=== PATIENT | male | born 1975 | race Asian ===

== ENCOUNTER 2019-09-16 13:15 | Inpatient (IN) | payer MEDICAID, OTHER ==
[~2019-09-16] VITALS: Ht 182.9 cm; Wt 121.1 kg
[2019-09-16] MEDS ORDERED: ETOMIDATE (2MG/ML) 20ML VIAL IV ONE ×2 (13:30→14:45)
[2019-09-16] MEDS ORDERED: SODIUM CHLORIDE 0.9% 1,000 ML IV ONE (13:30)
[2019-09-16] MEDS ORDERED: MIDAZOLAM DRIP 50 mg/50mL 50 ML IV ONE (13:31)
[2019-09-16] MEDS ORDERED: SUCCINYLCHOLINE CHLORIDE 20 MG/ML 10ML VIAL IV ONE ×2 (13:31→14:45)
[2019-09-16] MEDS ORDERED: PROPOFOL 100 ML IV ONE (13:38)
[2019-09-16] MEDS: PROPOFOL 100 ML IV SCH (13:50)
[2019-09-16 14:00] VITALS: BP 205/109
--- NOTE | 2019-09-16 14:00 | NUR ---
PT INTUBATED BY DR. WOOD WITH ETT 8.0 AT 24CM, SECURED WITH HOLISTER. POSITIVE COLOR CHANGE ON ETCO2 DETECTOR, BILATERAL CHEST RISE. PLACED ON VENTILATOR V1 PLUGGED INTO RED OUTLET, ON SETTINGS: AC, RR 18, VT 550, PEEP +5, FIO2 100%. SUCTIONED FOR MODERATE THIN BLOOD-TINGED SECRETIONS. SPUTUM SAMPLE OBTAINED AND SENT TO LAB. ALARMS SET AND AUDIBLE. RN AND MD AT BEDSIDE. ABG TO FOLLOW IN ONE HOUR. WILL CONTINUE TO MONITOR.
[2019-09-16 14:24] LABS: Basophils # (auto) 0 10 ^3/uL (0-0.2); Basophils % (auto) 0.1 % (0.0-2.0); Eosinophils # (auto) 0 10 ^3/uL (0-0.8); Hematocrit 40.7 % (41.0-53.0); Lymphocytes # (auto) 0.4 10 ^3/uL (0.4-5.4); Lymphocytes % (auto) 3.4 % (10.0-50.0); Mean Corpuscular Hemoglobin 30.5 pg (28.0-32.0); Mean Corpuscular Hgb Conc. 31.9 g/dL (32.0-36.0); Mean Corpuscular Volume 95.9 fL (80.0-100.0); Monocytes # (auto) 0.4 10 ^3/uL (0-1.3); Monocytes % (auto) 2.9 % (0.0-12.0); Neutrophils # (auto) 11.5 10 ^3/uL (1.6-8.6); Neutrophils % (auto) 93.6 % (37.0-80.0); Platelet Count (auto) 197 10^3/uL (140-450); Red Blood Cells 4.24 10^6/uL (4.5-5.90); Red Cell Distribution Width 14.6 % (11.8-14.3); White Blood Cell 12.2 10^3/uL (4.4-10.8)
[2019-09-16 14:30] LABS: Urine Amorphous Crystal MOD /hpf (None Seen); Urine Bacteria NONE SEEN /hpf (None Seen); Urine Blood 1+ /uL (Negative); Urine Hyaline Cast MOD /lpf (0 - 2); Urine Specific Gravity 1.021 (1.001-1.035); Urine WBC 2 /hpf (0 - 3)
[2019-09-16 14:39] LABS: Albumin 1.8 g/dL (3.4-5.0); Calcium 7.6 mg/dL (8.5-10.1)
[2019-09-16] MEDS: MIDAZOLAM DRIP 50 mg/50mL 50 ML IV SCH (14:40)
[2019-09-16 14:45] LABS: BUN/Creatinine Ratio 19.7; Bilirubin, Total 0.5 mg/dL (0.2-1.0); Total Protein 6.4 g/dL (6.4-8.2)
[2019-09-16 14:47] LABS: Potassium 5.9 mmol/L (3.5-5.1)
[2019-09-16] MEDS ORDERED: DEXTROSE 10% 1,000 ML IV ONE (15:03)
[2019-09-16] MEDS ORDERED: FUROSEMIDE 20 MG/2 ML VIAL ONE (15:08)
[2019-09-16] MEDS: DEXTROSE 10% 1,000 ML IV SCH (15:13)
[2019-09-16] MEDS ORDERED: ALBUTEROL SULF 2.5 MG/0.5ML(0.5%) NEB SOLN NEB ONE (15:15)
[2019-09-16] MEDS ORDERED: CALCIUM GLUC 4.65meq/50ml D5AE 50 ML IV ONE (15:15)
[2019-09-16] MEDS ORDERED: SODIUM BICARBONATE 8.4% INJ 50ML SYRINGE IV ONE (15:15)
[2019-09-16] MEDS ORDERED: SODIUM ZIRCONIUM CYCL 10 GM PAK PO ONE (15:15)
[2019-09-16] MEDS ORDERED: FUROSEMIDE 20 MG/2 ML VIAL IV ONE ×2 (15:15)
[2019-09-16] MEDS ORDERED: AZITHROMYCIN 500MG/ 250ML 250 ML IV ONE (15:30)
[2019-09-16] MEDS ORDERED: cefTRIAXone 1GM/50ML D5W 50 ML IV ONE (15:30)
[2019-09-16 15:57] VITALS: BP 121/61
[2019-09-16 16:00] VITALS: BP 121/61
[2019-09-16] MEDS ORDERED: DEXTROSE (50%) 50ML SYRG IV PRN (16:00)
[2019-09-16] MEDS ORDERED: MORPHINE SULF INJ 2 MG/ML SYRINGE 1ML IV PRN ×2 (16:00)
[2019-09-16] MEDS ORDERED: LACTULOSE 20Gm/30ML SOLN PO PRN (16:00)
[2019-09-16] MEDS ORDERED: DexAMETHasone SOD PHOS 10MG/1ML VIAL INJ IV ONE (16:00)
[2019-09-16] MEDS ORDERED: ACETAMINOPHEN 500 MG TAB PO PRN (16:00)
[2019-09-16] MEDS ORDERED: NITROGLYCERIN 0.4 MG SL TAB SL PRN (16:00)
[2019-09-16] MEDS ORDERED: ALBUTEROL SULF 2.5 MG/0.5ML(0.5%) NEB SOLN NEB PRN (16:00)
[2019-09-16] MEDS ORDERED: PROMETHAZINE HCL 25 MG/ML 1ML IV PRN (16:00)
[2019-09-16] MEDS: ACCU-CHEK COMFORT CURVE STRIP VI SCH ×2 (16:20→23:42)
[2019-09-16] MEDS: PHENYLEPHRINE IV 250 ML IV SCH (16:45)
[2019-09-16] MEDS ORDERED: PHENYLEPHRINE IV 250 ML IV ONE (16:56)
[2019-09-16] MEDS: FUROSEMIDE 40 MG/4 ML VIAL IV SCH (18:19)
[2019-09-16 19:30] VITALS: BP 130/74
[2019-09-16] MEDS: IPRATROPIUM BROM 0.5 MG/2.5ML INH SOL NEB SCH (19:30)
[2019-09-16] MEDS: ALBUTEROL SULF 2.5 MG/0.5ML(0.5%) NEB SOLN NEB SCH (19:30)
[2019-09-16] MEDS: BUDESONIDE (INHALATION) 0.5 MG/2 ML NEB NEB SCH (19:30)
[2019-09-16] MEDS ORDERED: METO2.5T11 PO (19:54)
[2019-09-16] MEDS ORDERED: POTA1TAB61 PO (19:54)
[2019-09-16] MEDS ORDERED: GLIP5TAB12 PO (19:54)
[2019-09-16] MEDS ORDERED: FURO40TA4 PO (19:54)
[2019-09-16] MEDS ORDERED: SACU1TAB7 PO (19:54)
[2019-09-16] MEDS ORDERED: CARV12.544 PO (19:54)
[2019-09-16] MEDS ORDERED: ASCO500T11 PO (19:55)
[2019-09-16] MEDS ORDERED: HAWTCAP PO (19:55)
[2019-09-16] MEDS ORDERED: CRAN600T OR (19:55)
[2019-09-16] MEDS ORDERED: MULT-1018 PO (19:55)
[2019-09-16] MEDS ORDERED: COEN150C4 PO (19:56)
[2019-09-16] MEDS ORDERED: TAUR500C2 PO (19:57)
[2019-09-16 21:55] VITALS: BP 139/76
[2019-09-16] MEDS ORDERED: BUDESONIDE (INHALATION) 180 MCG IH IN SCH (22:00)
[2019-09-16] MEDS ORDERED: ALBUTEROL SULF HFA 90MCG INH 200DOSE IN SCH (22:00)
[2019-09-16] MEDS: SODIUM CHLOR 0.9% PF (SALINE LOCK) 10ML VIAL/SYR IV SCH (23:42)
[2019-09-16] MEDS: CARVEDILOL 3.125 MG TAB PO SCH (23:43)
[2019-09-17] VITALS (11 sets, daily range): BP systolic 113–146; BP diastolic 56–78
[2019-09-17] MEDS: ACCU-CHEK COMFORT CURVE STRIP VI SCH ×5 (00:06→16:00)
[2019-09-17] MEDS: IPRATROPIUM BROM 0.5 MG/2.5ML INH SOL NEB SCH ×4 (00:30→18:25)
[2019-09-17] MEDS: ALBUTEROL SULF 2.5 MG/0.5ML(0.5%) NEB SOLN NEB SCH ×4 (00:30→18:25)
[2019-09-17] MEDS: PHENYLEPHRINE IV 250 ML IV SCH ×3 (01:24→19:25)
[2019-09-17 06:04] LABS: Albumin 1.3 g/dL (3.4-5.0); Calcium 7.2 mg/dL (8.5-10.1); Potassium 4.9 mmol/L (3.5-5.1)
[2019-09-17 06:09] LABS: BUN/Creatinine Ratio 21.8; Bilirubin, Total 0.4 mg/dL (0.2-1.0); Total Protein 3.8 g/dL (6.4-8.2)
[2019-09-17] MEDS: SODIUM CHLOR 0.9% PF (SALINE LOCK) 10ML VIAL/SYR IV SCH ×3 (06:34→22:52)
[2019-09-17] MEDS: FUROSEMIDE 40 MG/4 ML VIAL IV SCH ×2 (06:34→18:37)
[2019-09-17 07:45] LABS: Basophils # (auto) 0 10 ^3/uL (0-0.2); Basophils % (auto) 0.2 % (0.0-2.0); Eosinophils # (auto) 0 10 ^3/uL (0-0.8); Hematocrit 28.1 % (41.0-53.0); Hemoglobin 9.3 g/dL (13.5-17.5); Lymphocytes # (auto) 0.6 10 ^3/uL (0.4-5.4); Lymphocytes % (auto) 8.1 % (10.0-50.0); Mean Corpuscular Hemoglobin 31.4 pg (28.0-32.0); Mean Corpuscular Hgb Conc. 33.3 g/dL (32.0-36.0); Mean Corpuscular Volume 94.3 fL (80.0-100.0); Monocytes # (auto) 0.3 10 ^3/uL (0-1.3); Monocytes % (auto) 4.2 % (0.0-12.0); Neutrophils # (auto) 6.9 10 ^3/uL (1.6-8.6); Neutrophils % (auto) 87.5 % (37.0-80.0); Platelet Count (auto) 109 10^3/uL (140-450); Red Blood Cells 2.98 10^6/uL (4.5-5.90); Red Cell Distribution Width 14.4 % (11.8-14.3); White Blood Cell 7.9 10^3/uL (4.4-10.8)
[2019-09-17] MEDS: BUDESONIDE (INHALATION) 0.5 MG/2 ML NEB NEB SCH ×2 (08:04→18:25)
[2019-09-17] MEDS ORDERED: DexAMETHasone SOD PHOS 10MG/1ML VIAL INJ IV SCH (10:00)
[2019-09-17] MEDS ORDERED: ENOXAPARIN SOD 30 MG/0.3 ML SYRINGE SC SCH (10:00)
[2019-09-17] MEDS ORDERED: NITROGLYCERIN 0.2MG/HR TOPICAL PATCH TD SCH (10:00)
[2019-09-17] MEDS ORDERED: ASPirin 81 mg TAB PO SCH (10:00)
[2019-09-17] MEDS ORDERED: ASCORBIC ACID 1,000 MG TAB PO SCH (10:00)
[2019-09-17] MEDS ORDERED: ZINC SULFATE 220mg CAP or TAB PO SCH (10:00)
[2019-09-17] MEDS ORDERED: CHOLECALCIFEROL (VITD3) 2,000 UNIT CAP PO SCH (10:00)
[2019-09-17] MEDS: cefTRIAXone 1GM/50ML D5W 50 ML IV SCH (10:14)
[2019-09-17] MEDS: CARVEDILOL 3.125 MG TAB PO SCH ×2 (12:00→22:00)
[2019-09-17] MEDS: DEXTROSE 10% 1,000 ML IV SCH (12:01)
[2019-09-17] MEDS: AZITHROMYCIN 500MG/ 250ML 250 ML IV SCH (12:17)
--- NOTE | 2019-09-17 15:00 | NUR ---
RT Transport Note: Patient transported to CT with RN SHEILA KEYS. Patient transported to and from procedure on ventilator with previous ordered settings. Patient on campus monitor with alarms set and audible, ambu-bag/mask connected to 02 tank. Patient returned to room with no adverse reaction noted. Transport completed without incident.
[2019-09-17] MEDS: MIDAZOLAM DRIP 50 mg/50mL 50 ML IV SCH (15:37)
[2019-09-17] MEDS: PROPOFOL 100 ML IV SCH (16:03)
[2019-09-17] MEDS ORDERED: DEXTROSE (50%) 50ML SYRG IV PRN ×2 (20:00→21:30)
[2019-09-17] MEDS ORDERED: ACCU-CHEK COMFORT CURVE STRIP VI SCH (20:00)
[2019-09-18] VITALS (11 sets, daily range): BP systolic 105–178; BP diastolic 60–87
[2019-09-18] MEDS: ACCU-CHEK COMFORT CURVE STRIP VI SCH ×4 (00:06→17:14)
[2019-09-18] MEDS: IPRATROPIUM BROM 0.5 MG/2.5ML INH SOL NEB SCH ×4 (00:09→18:13)
[2019-09-18] MEDS: ALBUTEROL SULF 2.5 MG/0.5ML(0.5%) NEB SOLN NEB SCH ×4 (00:09→18:12)
[2019-09-18] MEDS: InsuLIN REG 1unit/0.01ml Soln (100units/ml) SC SCH ×4 (00:12→17:14)
[2019-09-18] MEDS: PHENYLEPHRINE IV 250 ML IV SCH (02:24)
[2019-09-18] MEDS: SODIUM CHLOR 0.9% PF (SALINE LOCK) 10ML VIAL/SYR IV SCH ×3 (06:01→22:05)
[2019-09-18] MEDS: FUROSEMIDE 40 MG/4 ML VIAL IV SCH ×2 (06:01→17:13)
[2019-09-18 07:50] LABS: Basophils # (auto) 0 10 ^3/uL (0-0.2); Basophils % (auto) 0.1 % (0.0-2.0); Eosinophils # (auto) 0 10 ^3/uL (0-0.8); Hematocrit 27.3 % (41.0-53.0); Lymphocytes # (auto) 0.6 10 ^3/uL (0.4-5.4); Lymphocytes % (auto) 7.4 % (10.0-50.0); Mean Corpuscular Hemoglobin 31.3 pg (28.0-32.0); Monocytes # (auto) 0.4 10 ^3/uL (0-1.3); Monocytes % (auto) 5.4 % (0.0-12.0); Neutrophils # (auto) 6.6 10 ^3/uL (1.6-8.6); Neutrophils % (auto) 87.1 % (37.0-80.0); Platelet Count (auto) 118 10^3/uL (140-450); Red Blood Cells 2.87 10^6/uL (4.5-5.90); Red Cell Distribution Width 14.8 % (11.8-14.3); White Blood Cell 7.6 10^3/uL (4.4-10.8)
[2019-09-18 08:06] LABS: BUN/Creatinine Ratio 20.7; Calcium 7.1 mg/dL (8.5-10.1); Potassium 4.7 mmol/L (3.5-5.1)
[2019-09-18] MEDS: CARVEDILOL 3.125 MG TAB PO SCH ×2 (09:48→22:06)
[2019-09-18] MEDS: PROPOFOL 100 ML IV SCH ×5 (09:48→23:00)
[2019-09-18] MEDS: cefTRIAXone 1GM/50ML D5W 50 ML IV SCH ×2 (09:48→22:00)
[2019-09-18] MEDS: BUDESONIDE (INHALATION) 0.5 MG/2 ML NEB NEB SCH ×2 (10:45→18:13)
[2019-09-18] MEDS: AZITHROMYCIN 500MG/ 250ML 250 ML IV SCH (10:47)
--- NOTE | 2019-09-18 11:52 | NUR ---
WOUND CARE NOTE: Wound care in to see patient per wound care request regarding sacral pressure injury that are noted present on admission. Patient is 44 years old male with admitting diagnosis of ALOC, Acute Resp Failure, HF. Patient is resting in hospital bed in ED #18. Patient is intubated, sedated and mechanically ventilated. Patient appears to be in no pain using Ford Womack Faces Pain Scale. His Nicholas score is 12. Skin assessment done with the assistance of patient's nurse, MARK Cano. Noted patient's Rt, Lt and medial sacrum has dark maroon blistered pressure injury measuring 6x5 cm. Sacral pressure injury is consistent with DTI (Deep Tissue Injury). On reports, patient found altered by his family. Patient is receiving BID/PRN cleaning and application of Z Guard cream to sacral, buttocks with Opti foam sacral dressing to sacrum. Patient's BLE also noted with scabs and dry hyperkeratotic skin. Photograph of patient's skin issue are taken for reference. Patient noted with generalized edema and his scrotum also noted swelling. Repositioned patient for comfort facing his Lt. side, redistributed pressure points with pillows. Patient tolerated well. RECOMMENDATION: Nursing to continue with BID/PRN cleaning and application of Z Guard cream to sacral, buttocks per MD order, Dietary consult, frequent turning and repositioning schedule as condition permits,redistribute pressure points with pillows,frequent frances care/check, keep clean and dry, elevate heels on pillows, air mattress (ordered), continue monitoring by wound care while patient is hospitalized. Addendum: 09/18/19 at 1520 by Stefanie Briceño RN Amended: Links added.
[2019-09-18] MEDS ORDERED: SODIUM BICARBONATE 50ML VIAL 75 ML in SOD CHL 0.45% 1,000 ML IV SCH (14:15)
[2019-09-18] MEDS ORDERED: PANTOPRAZOLE 40 MG/10 ML VIAL INJ IV ONE (14:45)
[2019-09-18] MEDS ORDERED: SODIUM BICARBONATE 8.4 % INJ 50ML VIAL IV ONE (14:45)
--- NOTE | 2019-09-18 15:03 | NUR ---
AIR MATTRESS: Air bed ordered at [facility]. VERNA 09/18/19 @ 2100. Reference #[id number]. Please call [facility] at if needed to follow up. Addendum: 09/18/19 at 1504 by Stefanie Briceño RN Amended: Links added.
[2019-09-18] MEDS ORDERED: hydrALAZINE HCL 20 MG/ML VL ONE (19:10)
[2019-09-18 19:46] LABS: Amphetamine Screen, Urine NEGATIVE (NEGATIVE); Barbiturate Scree,Urine NEGATIVE (NEGATIVE); Cannabinoid Screen, Urine NEGATIVE (NEGATIVE); Sodium Urine 81 mmol/L (40-220)
[2019-09-18 19:49] LABS: Benzodiazephine Screen, Urine NEGATIVE (NEGATIVE); Cocaine Screen, Urine NEGATIVE (NEGATIVE); Creatinine, Urine 16 mg/dL (30.0-125.0); Opiate Scree,Urine NEGATIVE (NEGATIVE); Phencyclidine Screen, Urine NEGATIVE (NEGATIVE)
[2019-09-18 20:59] LABS: INR 0.98 (0.9-1.15)
[2019-09-18] MEDS: hydrALAZINE HCL 20 MG/ML VL IV PRN (21:20)
[2019-09-18] MEDS: PANTOPRAZOLE 40 MG/10 ML VIAL INJ IV SCH (22:00)
[2019-09-19] VITALS (13 sets, daily range): BP systolic 127–169; BP diastolic 58–86
[2019-09-19] MEDS ORDERED: ENALAPRILAT 1.25 MG/ML-1ML VIAL IV ONE
[2019-09-19] MEDS: ALBUTEROL SULF 2.5 MG/0.5ML(0.5%) NEB SOLN NEB SCH ×4 (00:20→18:31)
[2019-09-19] MEDS: IPRATROPIUM BROM 0.5 MG/2.5ML INH SOL NEB SCH ×4 (00:20→18:31)
[2019-09-19] MEDS: InsuLIN REG 1unit/0.01ml Soln (100units/ml) SC SCH ×4 (00:27→17:54)
[2019-09-19] MEDS: ACCU-CHEK COMFORT CURVE STRIP VI SCH ×4 (00:27→17:54)
[2019-09-19] MEDS: PROPOFOL 100 ML IV SCH (01:30)
[2019-09-19] MEDS: SODIUM CHLOR 0.9% PF (SALINE LOCK) 10ML VIAL/SYR IV SCH ×3 (05:40→23:09)
[2019-09-19] MEDS: FUROSEMIDE 40 MG/4 ML VIAL IV SCH (05:40)
[2019-09-19] MEDS: BUDESONIDE (INHALATION) 0.5 MG/2 ML NEB NEB SCH ×2 (06:15→18:31)
[2019-09-19 08:49] LABS: Basophils # (auto) 0 10 ^3/uL (0-0.2); Basophils % (auto) 0.2 % (0.0-2.0); Eosinophils # (auto) 0 10 ^3/uL (0-0.8); Eosinophils % (auto) 0.7 % (0.0-7.0); Hematocrit 27.1 % (41.0-53.0); Hemoglobin 9.2 g/dL (13.5-17.5); Lymphocytes % (auto) 16.9 % (10.0-50.0); Mean Corpuscular Hemoglobin 31.8 pg (28.0-32.0); Mean Corpuscular Volume 93.6 fL (80.0-100.0); Monocytes # (auto) 0.3 10 ^3/uL (0-1.3); Monocytes % (auto) 4.5 % (0.0-12.0); Neutrophils # (auto) 4.8 10 ^3/uL (1.6-8.6); Neutrophils % (auto) 77.7 % (37.0-80.0); Nucleated Red Blood Cells % 0.1 %; Platelet Count (auto) 127 10^3/uL (140-450); Red Cell Distribution Width 14.6 % (11.8-14.3); White Blood Cell 6.1 10^3/uL (4.4-10.8)
[2019-09-19 08:57] LABS: BUN/Creatinine Ratio 21.9; Potassium 4.1 mmol/L (3.5-5.1)
[2019-09-19] MEDS: PANTOPRAZOLE 40 MG/10 ML VIAL INJ IV SCH ×2 (09:38→23:09)
[2019-09-19] MEDS: cefTRIAXone 1GM/50ML D5W 50 ML IV SCH ×2 (09:38→23:09)
[2019-09-19] MEDS: AZITHROMYCIN 500MG/ 250ML 250 ML IV SCH (09:38)
[2019-09-19] MEDS: CARVEDILOL 3.125 MG TAB PO SCH ×2 (09:49→22:00)
[2019-09-19] MEDS: hydrALAZINE HCL 20 MG/ML VL IV PRN ×2 (12:32→18:26)
--- NOTE | 2019-09-19 12:55 | NUR ---
Consult Consider TF of Osmolite 1.2 with a goal rate of 50ml/hr per MD approval, change to Glucerna 1.2 if pt is confirmed DM Consider adding Nephrovite and Vitamin C 500mg BID for wound healing Est energy needs 6810-9314 kcal (20-25 kcal/kg IBW 81kg) Est protein needs 81-101g (0.6-0.75g/kg BW 135.6kg, r/t elevated RFT possible CKD no HD) Will reassess prn. Addendum: 09/19/19 at [address] Amended: Links added.
[2019-09-19] MEDS: Jevity 1.2 Cal/Fiber 1 Liter GT SCH (13:55)
[2019-09-19] MEDS ORDERED: AMIODARONE 450mg/250ml AE 250 ML IV SCH ×2 (15:34→21:34)
[2019-09-19] MEDS: FUROSEMIDE 100 MG/10ML VIAL IV SCH (18:17)
[2019-09-20] VITALS (46 sets, daily range): BP systolic 111–209; BP diastolic 57–92
[2019-09-20] MEDS: ACCU-CHEK COMFORT CURVE STRIP VI SCH ×4 (00:24→18:01)
[2019-09-20] MEDS: IPRATROPIUM BROM 0.5 MG/2.5ML INH SOL NEB SCH ×4 (00:26→19:03)
[2019-09-20] MEDS: ALBUTEROL SULF 2.5 MG/0.5ML(0.5%) NEB SOLN NEB SCH ×4 (00:26→19:03)
[2019-09-20] MEDS: hydrALAZINE HCL 20 MG/ML VL IV PRN ×4 (00:43→21:30)
[2019-09-20] MEDS ORDERED: cloNIDine HCL 0.1 MG TAB PO ONE (03:15)
[2019-09-20] MEDS: BUDESONIDE (INHALATION) 0.5 MG/2 ML NEB NEB SCH (06:36)
[2019-09-20] MEDS: InsuLIN REG 1unit/0.01ml Soln (100units/ml) SC SCH ×4 (06:40→18:00)
[2019-09-20] MEDS: SODIUM CHLOR 0.9% PF (SALINE LOCK) 10ML VIAL/SYR IV SCH ×3 (06:51→22:00)
[2019-09-20] MEDS: FUROSEMIDE 100 MG/10ML VIAL IV SCH ×2 (07:07→20:18)
[2019-09-20] MEDS: PANTOPRAZOLE 40 MG/10 ML VIAL INJ IV SCH ×2 (09:57→22:00)
[2019-09-20] MEDS: AZITHROMYCIN 500MG/ 250ML 250 ML IV SCH (09:57)
[2019-09-20] MEDS: cefTRIAXone 1GM/50ML D5W 50 ML IV SCH ×2 (09:57→22:00)
[2019-09-20] MEDS: CARVEDILOL 3.125 MG TAB PO SCH ×2 (09:57→21:49)
[2019-09-20 10:12] LABS: Basophils # (auto) 0.1 10 ^3/uL (0-0.2); Basophils % (auto) 1.2 % (0.0-2.0); Eosinophils # (auto) 0.1 10 ^3/uL (0-0.8); Eosinophils % (auto) 3.2 % (0.0-7.0); Hematocrit 33.9 % (41.0-53.0); Hemoglobin 11.2 g/dL (13.5-17.5); Lymphocytes # (auto) 0.4 10 ^3/uL (0.4-5.4); Lymphocytes % (auto) 9.2 % (10.0-50.0); Mean Corpuscular Hemoglobin 31.2 pg (28.0-32.0); Mean Corpuscular Hgb Conc. 32.9 g/dL (32.0-36.0); Mean Corpuscular Volume 94.7 fL (80.0-100.0); Monocytes # (auto) 0.4 10 ^3/uL (0-1.3); Monocytes % (auto) 7.9 % (0.0-12.0); Neutrophils # (auto) 3.5 10 ^3/uL (1.6-8.6); Neutrophils % (auto) 78.5 % (37.0-80.0); Platelet Count (auto) 124 10^3/uL (140-450); Red Blood Cells 3.58 10^6/uL (4.5-5.90); Red Cell Distribution Width 14.5 % (11.8-14.3); White Blood Cell 4.5 10^3/uL (4.4-10.8)
[2019-09-20 10:30] LABS: Calcium 7.3 mg/dL (8.5-10.1)
--- NOTE | 2019-09-20 11:00 | NUR ---
RECEIVED FROM ED VIA BED. RE-ASSESSED. REPOSITIONED FOR COMFORT. PT REMAINS ON VENTILATOR DX WITH ALOC. CURRENTLY SEDATED WITH PROPOFOL AT 10 MICG/KG/MIN. PT LOOKS COMFORTABLE. REPOSITIONED FOR COMFORT. ORAL CARE PROVIDED. PT HAS THICK CERDA ORAL AND ETT SECRETIONS.PT LAYING ON ICU AIR LOSS MATTRESS, I CHECK WITH WOUND CARE CHRIS AND SHE STATES THIS MATTRESS IS APPROPRIATE FOR PT'S WOUNDS. THERE IS NO NEED FOR A SPECIALTY BED WHILE PT IS ON THIS AIRLOSS MATTRESS. MONITOR ALARMS VERIFIED . TLC ON RT IJ ALL PORTS PATENT, FC DRAINING YELLOW PALE URINE AT ADEQUATE AMOUNTS PER HR, PT BEING MONITOR BY CLERICAL ADJUDICATOR FOR ELEVATED BUN+CR WITH FLUID OVERLOAD.
[2019-09-20] MEDS: PROPOFOL 100 ML IV SCH ×2 (14:19→21:49)
[2019-09-20] MEDS: LINEZOLID 600MG/300ML 300 ML IV SCH (16:23)
--- NOTE | 2019-09-20 16:40 | NUR ---
DR. LAUREANO ROUNDING ON PT. UPDATED ON PT'S CONDITION. NEW ORDERS RECEIVED. WANTS TO PROCEED DIURESING PT.
--- NOTE | 2019-09-20 19:30 | NUR ---
REPORT GIVEN TO ONCOMING MARK RAMÍREZ. PT REMAINS HYPERTENSIVE,. MEDICATED WITH HYDRALAZINE TWICE, PT ALSO JUST RECEIVED LASIX.
--- NOTE | 2019-09-20 20:00 | NUR ---
Opening Shift Note: Patient is intubated/sedated. ET size 8.0/26 @ lip. Settings: AC rate 14, vT 600, FiO2 40%, and PEEP 5. Neuro: pupils 3 mm/brisk/reactive; flaccid extremities; hypoactive cough/gag. Cardio: NSR with inverted t wave 70s-80s; elevated BPs 170s-180s; radial pulses palpable with +3 pitting edema to both arms; DP pulses weak but palpable with +3 pitting to BLE. Resp: lung sounds clear/dim in bases; small output: rust colored/thick in mouth. GI: R NGT running Jevity @ 30 ml/hr (goal) with 5 ml of residual. Hypoactive BS; Flexiseal in place for liquid brown stool. Mcgill inserted on 09/16/19 for strict I/O; purluent discharge from insertion site; meatus care performed. Skin: BUE open blistering: telfa nonadherent gauze wrap CDI; BLE cellulitis scabbing/scaly/discolored TESS; Sacral wound DTI with opening: optifoam CDI. IV: right IJ TLC running propofol @ 12.5 mcg/hr inserted on 09/16/19. Will continue to round/reposition/perform oral care prn.
[2019-09-20] MEDS: ALBUMIN 25% 100 ML IV SCH (20:17)
[2019-09-21] VITALS (81 sets, daily range): BP systolic 124–248; BP diastolic 62–102
[2019-09-21] MEDS: ALBUMIN 25% 100 ML IV SCH ×2 (00:37→10:59)
[2019-09-21] MEDS: LINEZOLID 600MG/300ML 300 ML IV SCH ×2 (00:38→13:09)
[2019-09-21] MEDS: IPRATROPIUM BROM 0.5 MG/2.5ML INH SOL NEB SCH ×4 (01:26→18:17)
[2019-09-21] MEDS: BUDESONIDE (INHALATION) 0.5 MG/2 ML NEB NEB SCH ×3 (01:26→18:17)
[2019-09-21] MEDS: ALBUTEROL SULF 2.5 MG/0.5ML(0.5%) NEB SOLN NEB SCH ×4 (01:26→18:17)
[2019-09-21] MEDS: PROPOFOL 100 ML IV SCH ×3 (03:36→13:28)
[2019-09-21 04:22] LABS: Basophils # (auto) 0 10 ^3/uL (0-0.2); Basophils % (auto) 0.2 % (0.0-2.0); Eosinophils # (auto) 0.2 10 ^3/uL (0-0.8); Eosinophils % (auto) 4.2 % (0.0-7.0); Hematocrit 27.3 % (41.0-53.0); Hemoglobin 9.2 g/dL (13.5-17.5); Lymphocytes # (auto) 0.5 10 ^3/uL (0.4-5.4); Lymphocytes % (auto) 10.3 % (10.0-50.0); Mean Corpuscular Hemoglobin 31.6 pg (28.0-32.0); Mean Corpuscular Hgb Conc. 33.5 g/dL (32.0-36.0); Mean Corpuscular Volume 94.2 fL (80.0-100.0); Monocytes # (auto) 0.4 10 ^3/uL (0-1.3); Monocytes % (auto) 7.9 % (0.0-12.0); Neutrophils # (auto) 3.5 10 ^3/uL (1.6-8.6); Neutrophils % (auto) 77.4 % (37.0-80.0); Platelet Count (auto) 100 10^3/uL (140-450); Red Cell Distribution Width 14.4 % (11.8-14.3); White Blood Cell 4.6 10^3/uL (4.4-10.8)
[2019-09-21 04:38] LABS: Albumin 1.7 g/dL (3.4-5.0); Potassium 3.9 mmol/L (3.5-5.1)
[2019-09-21 04:46] LABS: BUN/Creatinine Ratio 22.3; Bilirubin, Total 0.4 mg/dL (0.2-1.0); Total Protein 4.8 g/dL (6.4-8.2)
--- NOTE | 2019-09-21 05:00 | NUR ---
Patient bathe/linen change Patient given complete CHG bath. Skin integrity assessed for any changes; optifoam on sacrum changed. Linens and gown changed. Patient repositioned for comfort.
[2019-09-21] MEDS: FUROSEMIDE 100 MG/10ML VIAL IV SCH ×3 (06:00→18:00)
[2019-09-21] MEDS: ACCU-CHEK COMFORT CURVE STRIP VI SCH ×4 (06:00→18:33)
[2019-09-21] MEDS: InsuLIN REG 1unit/0.01ml Soln (100units/ml) SC SCH ×4 (06:00→18:45)
[2019-09-21] MEDS: SODIUM CHLOR 0.9% PF (SALINE LOCK) 10ML VIAL/SYR IV SCH ×3 (06:00→22:13)
[2019-09-21] MEDS: CARVEDILOL 3.125 MG TAB PO SCH ×2 (11:00→22:14)
[2019-09-21] MEDS: cefTRIAXone 1GM/50ML D5W 50 ML IV SCH ×2 (11:00→22:13)
[2019-09-21] MEDS: PANTOPRAZOLE 40 MG/10 ML VIAL INJ IV SCH ×2 (11:00→22:13)
[2019-09-21] MEDS: AZITHROMYCIN 500MG/ 250ML 250 ML IV SCH (11:00)
--- NOTE | 2019-09-21 11:09 | NUR ---
Dr. Olivo at bedside.
--- NOTE | 2019-09-21 12:00 | NUR ---
Dr. Vines at bedside.
[2019-09-21] MEDS ORDERED: metOLazone 5 MG TAB PO ONE (14:30)
--- NOTE | 2019-09-21 14:55 | NUR ---
Nutrition Followup Note Wt: 135.6 kg (pt with + 4 edema) Pt intubated and sedated with propofol running at 20.412 ml/hr which provides 538 kcal from lipids. pt is currently NPO with EN support with Jevity @ 30 ml/hr providing 864 kcals and 38 gm proteins. pt with inadequate EN support Est energy needs 7751-7879 kcal (20-25 kcal/kg IBW 81kg) Est protein needs 81-101g (0.6-0.75g/kg BW 135.6kg, r/t elevated RFT possible CKD no HD) Will reassess per dry body wt Labs: BUN 91 H, CREAT 4.08 H, ALB 1.7 L, CA 7.0 L, GLU 156 H BM: pt has no BM reported per Rn note Skin: BS 11 high risk, full details in manager care note PES: Altered nutrition related lab values r/t current/chronic medical condition aeb elev RFTs, severe hypoalbuminemia Comments: Will continue to monitor NPO status, EN tolerance, skin status, pertinent labs and weight trends. Will f/u in 2-3 days. Rec: 1) Continue to monitor NPO status, labs, skin 2) Refer pt to OPD on DC 3) Continue current plan of care. 4) Consider TF of Osmolite 1.2 at a goal rate of 50 ml/hr per Md approval, change to Glucerna 1.2 if pt confirmed diabetic. 5) Consider adding Nephrovite and Vitamin C 500mg BID for wound healing
--- NOTE | 2019-09-21 15:15 | NUR ---
REPORT RECEIVED AND ASSUMED CARE; SEE INTERVENTIONS FOR ASSESSMENT; VS STABLE WITH EXCEPTION FOR SBP= 200'S AND WILL GIVE LABETALOL 10MG IVP PER RX; PT. INTUBATED/SEDATED/VENTED; WILL CONT. TO MONITOR.
[2019-09-21] MEDS ORDERED: FUROSEMIDE INJECTION 10 ML ONE (16:26)
[2019-09-21] MEDS: LABETALOL HCL 5 MG/ML 4ML SYRINGE IV PRN ×3 (16:29→21:04)
--- NOTE | 2019-09-21 17:25 | NUR ---
REPORT REPORT RECEIVED FROM DAVID FLORES AND [facility]
--- NOTE | 2019-09-21 18:55 | NUR ---
PAGED HOSPITALIST REGARDING HTN
--- NOTE | 2019-09-21 19:01 | NUR ---
HOSPITALIST CALLED BACK. CURRENT VITAL SIGNS AND DOSE AND TIME OF BP MEDICATIONS PATIENT RECEIVED ARE INFORMED TO HIM. NEW ORDERS RECEIVED FOR HYDRALAZINE PRN.
--- NOTE | 2019-09-21 19:10 | NUR ---
PHARMACIST HYDRALAZINE IS NOT AVAILABLE IN HOSPICE BEREAVEMENT COORDINATOR AND ICU. TALKED TO PHARMACIST REGARDING PATIENT'S CURRENT SITUATION AND HYDRALAZINE AVAILABILITY. PHARMACIST SAID THEY WILL STOCK IT SOON.
--- NOTE | 2019-09-21 19:38 | NUR ---
HYDRALAZINE GIVEN GRAIN MIXER STOCKED HYDRALAZINE IN AUTOMOTIVE GLASS MECHANIC NOW. WILL GIVE HYDRALAZINE 20 MG IV NOW.
[2019-09-21] MEDS: hydrALAZINE HCL 20 MG/ML VL IV PRN ×2 (19:40→23:05)
--- NOTE | 2019-09-21 20:15 | NUR ---
PAGED HOSPITALIST REGARDING HTN.
--- NOTE | 2019-09-21 20:24 | NUR ---
Assumed care of patient, sedated and orally intubated. Patient is connected to all monitors. Vital signs are stable. No s/s of distress noted. Complete bath provided. Linens and gown changed. Oral care provided. Patient turned and repositioned. Pupils are equal and reactive. Right nares NGT noted. All IV's are patent and flushed with NS. No s/s of redness or swelling noted. Optifoam applies to sacrum as a preventative measure. Pillow placed under gregoria prominence to offload pressure for patient safety and comfort. Mcgill hanging below bladder, draining clear, yellow urine to gravity. No indication of pain observed. Bed is locked in lowest position. HOB elevated 30 degrees, side rails up x2. Safety maintained, will continue to monitor.
--- NOTE | 2019-09-21 20:28 | NUR ---
CALLED BACK NOTIFIED PATIENT'S BP AND CURRENT MEDICATIONS ADMINISTRATION TIMES. ORDERED TO CHECK BP MANUALLY AND CALL BACK.
--- NOTE | 2019-09-21 20:38 | NUR ---
CALLED BACK MANUAL BP 190/100MMHG. NOTIFIED. ORDERED TO START LOW DOSE NICARDIPINE DRIP.
[2019-09-22] VITALS (104 sets, daily range): BP systolic 122–178; BP diastolic 52–84
[2019-09-22] MEDS: ACCU-CHEK COMFORT CURVE STRIP VI SCH ×4 (00:17→17:51)
[2019-09-22] MEDS: IPRATROPIUM BROM 0.5 MG/2.5ML INH SOL NEB SCH ×4 (00:24→18:40)
[2019-09-22] MEDS: ALBUTEROL SULF 2.5 MG/0.5ML(0.5%) NEB SOLN NEB SCH ×4 (00:24→18:40)
[2019-09-22] MEDS: LINEZOLID 600MG/300ML 300 ML IV SCH (01:04)
[2019-09-22] MEDS: FUROSEMIDE 100 MG/10ML VIAL IV SCH (04:39)
[2019-09-22] MEDS: LABETALOL HCL 5 MG/ML 4ML SYRINGE IV PRN (04:50)
[2019-09-22] MEDS: hydrALAZINE HCL 20 MG/ML VL IV PRN (05:12)
[2019-09-22] MEDS: InsuLIN REG 1unit/0.01ml Soln (100units/ml) SC SCH ×3 (06:06→12:00)
[2019-09-22] MEDS: SODIUM CHLOR 0.9% PF (SALINE LOCK) 10ML VIAL/SYR IV SCH ×3 (06:06→22:22)
[2019-09-22 06:36] LABS: Basophils # (auto) 0 10 ^3/uL (0-0.2); Basophils % (auto) 0.6 % (0.0-2.0); Eosinophils # (auto) 0.1 10 ^3/uL (0-0.8); Eosinophils % (auto) 2.7 % (0.0-7.0); Hematocrit 29.1 % (41.0-53.0); Hemoglobin 9.7 g/dL (13.5-17.5); Lymphocytes # (auto) 0.3 10 ^3/uL (0.4-5.4); Mean Corpuscular Hemoglobin 31.4 pg (28.0-32.0); Mean Corpuscular Hgb Conc. 33.5 g/dL (32.0-36.0); Mean Corpuscular Volume 93.7 fL (80.0-100.0); Monocytes # (auto) 0.2 10 ^3/uL (0-1.3); Monocytes % (auto) 3.7 % (0.0-12.0); Neutrophils # (auto) 4.8 10 ^3/uL (1.6-8.6); Platelet Count (auto) 95 10^3/uL (140-450); Red Cell Distribution Width 13.9 % (11.8-14.3); White Blood Cell 5.5 10^3/uL (4.4-10.8)
[2019-09-22] MEDS: BUDESONIDE (INHALATION) 0.5 MG/2 ML NEB NEB SCH (06:48)
[2019-09-22 06:53] LABS: Potassium 3.8 mmol/L (3.5-5.1)
[2019-09-22 07:03] LABS: Albumin 1.8 g/dL (3.4-5.0); BUN/Creatinine Ratio 22.7; Bilirubin, Total 0.4 mg/dL (0.2-1.0); Calcium 7.3 mg/dL (8.5-10.1); Total Protein 5.1 g/dL (6.4-8.2)
[2019-09-22] MEDS: PROPOFOL 100 ML IV SCH ×3 (08:16→13:07)
[2019-09-22] MEDS: cefTRIAXone 1GM/50ML D5W 50 ML IV SCH ×2 (09:13→22:22)
[2019-09-22] MEDS: CARVEDILOL 3.125 MG TAB PO SCH ×2 (09:14→22:21)
[2019-09-22] MEDS: AZITHROMYCIN 500MG/ 250ML 250 ML IV SCH (09:14)
[2019-09-22] MEDS: PANTOPRAZOLE 40 MG/10 ML VIAL INJ IV SCH ×2 (09:14→22:21)
--- NOTE | 2019-09-22 10:00 | NUR ---
PROCUREMENT FORESTER DR. LU UPDATED ON PATIENTS STATUS. SEE NEW ORDERS.
[2019-09-22] MEDS ORDERED: BUMETANIDE INJECTION 25 MG in GIVE UN-DILUTED 0 ML IV SCH (10:30)
[2019-09-22] MEDS ORDERED: ALBUMIN 25% 100 ML IV ONE (10:30)
--- NOTE | 2019-09-22 11:01 | NUR ---
MD ROUNDS DR. CHANG AT BEDSIDE. UPDATED ON PATIENTS STATUS. NEW ORDERS IN PLACE.
--- NOTE | 2019-09-22 11:06 | NUR ---
COOK CHILI DR. ANTONIO AT BEDSIDE. MD AWARE OF PENDING THORACENTESIS. LAB AT BEDSIDE TO OBTAIN PTT.
[2019-09-22 11:36] LABS: INR 0.96 (0.9-1.15)
--- NOTE | 2019-09-22 11:51 | NUR ---
[facility] called re: bumex gtt. Pharmacy stating medication might be on back order. Senior Quality Manager to callback with update.
--- NOTE | 2019-09-22 12:08 | NUR ---
Pharmacy calling stating bumex is in back order, Chemical Laboratory Assistant updated. New order for lasix gtt.
[2019-09-22] MEDS ORDERED: DOXYCYCLINE 100MG/250ML 250 ML IV ONE (12:15)
[2019-09-22] MEDS ORDERED: ENOXAPARIN SOD 40 MG/0.4 ML SYRINGE SC ONE (12:15)
[2019-09-22] MEDS: DOXYCYCLINE 100MG/250ML 250 ML IV SCH (12:42)
--- NOTE | 2019-09-22 13:06 | NUR ---
Lovenox held for procedure
--- NOTE | 2019-09-22 13:35 | NUR ---
PROCEDURE RIGHT SIDED THORACENTESIS PERFORMED AT BEDSIDE BY DR. ARANDA. BP 139/64 HR 87 POX ON 30% FI02 AT 96%.
--- NOTE | 2019-09-22 13:51 | NUR ---
PROCEDURE COMPLETED RIGHT SIDE INCISION DRESSED WITH PETROLEUM GAUZE AND TEGADERM. VS- BP 128/67 HR 89 96% ON 30% FI02. RR 15. POST PROCEDURE CXR TO BE PLACED. PAGED TO DETERMINE IF HE WOULD LIKE TO SAMPLE FLUIDS. Addendum: 09/22/19 at 1942 by Brianne Varma RN 2000 ml of clear yellow fluid removed.
[2019-09-22] MEDS: FUROSEMIDE INJECTION 100 MG in SODIUM CHL 0.9% 100 ML IV SCH ×5 (13:59→23:03)
--- NOTE | 2019-09-22 14:11 | NUR ---
Brake Drum Lathe Operator paged Brake Drum Lathe Operator paged to determine if he would like to send fluids.
--- NOTE | 2019-09-22 15:27 | NUR ---
UPDATED MOTIVATIONAL SPEAKER DR. LU AWARE PATIENT REMAINS ON A LOW DOSE OF CARDENE. MD VERBALIZED UNDERSTANDING. OK TO CONTINUE CARDENE GTT ORDERED.
--- NOTE | 2019-09-22 15:36 | NUR ---
Respiratory note: UNABLE TO PROCEED WITH CPAP AT THIS TIME.PT IS NOT RESPONSIVE TO VERBAL COMMANDS AND IS NOT TRACKING AT THIS TIME.MARK KNOX.
--- NOTE | 2019-09-22 18:12 | NUR ---
sedation Sedation restarted at this time. RR noted 26-30.
--- NOTE | 2019-09-22 19:45 | NUR ---
OPEN NOTES RECEIVED PATIENT SEDATED WITH IV PROPOFOL. OPEN EYES TO STIMULI, BITES ON TO THE ETT. NOT FOLLOWING COMMANDS. INTUBATED AND VENTILATED ON AC MODE, FIO2 30%. RR 16-20/MIN, SATS 96-97%. SINUS RHYTHM , ON IV CARDENE DRIP TO KEEP SBP <140 MMHG - WILL TITRATE ACCORDINGLY RIGHT NARES NGT PLACEMENT CHECKED, ASPIRATED 5 MLS GREENISH OUTPUT. RE STARTED FEEDING AT 10ML/HR WILL RE-ASSESS LATER. WITH IV LASIX DRIP AT 40MG/HR, WITH PIPER CATHETER DRAINING CLEAR YELLOWISH URINE SKIN ASSESSED - NOTED BOTH AC WITH OPEN AND SOME CLOSED BLISTERS COVERED WITH KERLIX LOWER LIMBS DRY AND WITH SOME SCABS REPOSITIONED. FULL ASSESSMENT -REFER INTERVENTIONS
--- NOTE | 2019-09-22 21:00 | NUR ---
SEDATION KEPT FOR NOW PATIENT BITES ON TO THE ETT WHEN AWAKE Addendum: 09/22/19 at 2144 by Janice Tai RN Amended: Links added.
[2019-09-22] MEDS ORDERED: PNEUMOCOCCAL VACC POLYS 25 MCG/0.5 ML VIAL IM ONE (22:00)
[2019-09-22] MEDS ORDERED: INFLUENZA QUAD 2019-2020 0.5ml SYRG IM ONE (22:00)
[2019-09-23] VITALS (108 sets, daily range): BP systolic 125–202; BP diastolic 62–92
[2019-09-23] MEDS: ACCU-CHEK COMFORT CURVE STRIP VI SCH ×5 (00:04→23:23)
[2019-09-23] MEDS: InsuLIN REG 1unit/0.01ml Soln (100units/ml) SC SCH ×4 (00:06→18:00)
[2019-09-23] MEDS: DOXYCYCLINE 100MG/250ML 250 ML IV SCH ×3 (00:17→23:23)
[2019-09-23] MEDS: IPRATROPIUM BROM 0.5 MG/2.5ML INH SOL NEB SCH ×4 (00:40→18:58)
[2019-09-23] MEDS: BUDESONIDE (INHALATION) 0.5 MG/2 ML NEB NEB SCH ×3 (00:40→22:06)
[2019-09-23] MEDS: ALBUTEROL SULF 2.5 MG/0.5ML(0.5%) NEB SOLN NEB SCH ×4 (00:40→18:58)
--- NOTE | 2019-09-23 01:30 | NUR ---
HYGIENE PATIENT CLEANED WITH CHG WIPES.LINENS CHANGED. ORAL CARE DONE. REPOSITIONED
[2019-09-23] MEDS: FUROSEMIDE INJECTION 100 MG in SODIUM CHL 0.9% 100 ML IV SCH ×10 (01:44→23:52)
--- NOTE | 2019-09-23 01:45 | NUR ---
BP HIGH PATIENT'S BP ELEVATED BP 202/75 MMHG - INCREASED CARDENE SEE IV SPREADSHEET FOR TITRATION
--- NOTE | 2019-09-23 02:00 | NUR ---
BP REMAINED ELEVATED BP 199/82 MMHG IV HYDRALAZINE GIVEN PER EMAR
[2019-09-23] MEDS: hydrALAZINE HCL 20 MG/ML VL IV PRN ×3 (02:04→13:49)
[2019-09-23 04:44] LABS: Potassium 3.7 mmol/L (3.5-5.1)
[2019-09-23 04:51] LABS: BUN/Creatinine Ratio 22.6; Bilirubin, Total 0.4 mg/dL (0.2-1.0); Calcium 7.5 mg/dL (8.5-10.1); Total Protein 5.4 g/dL (6.4-8.2)
[2019-09-23] MEDS: SODIUM CHLOR 0.9% PF (SALINE LOCK) 10ML VIAL/SYR IV SCH ×3 (06:00→22:06)
--- NOTE | 2019-09-23 07:30 | NUR ---
REPORT REPORT GIVEN TO MARK THOMAS
[2019-09-23] MEDS ORDERED: MEROPENEM 500MG IVPB 50 ML IV ONE (08:00)
[2019-09-23] MEDS: POTASSIUM CHL 20MEQ/100ML 100 ML IV SCH ×2 (08:42→10:52)
[2019-09-23] MEDS ORDERED: MEROPENEM 500MG IVPB 50 ML IV SCH (09:00)
--- NOTE | 2019-09-23 09:50 | NUR ---
DR Sandra LEVY @ BEDSIDE. NEW VENT SETTINGS TO BE PUT INTO EFFECT. RT PAGED TO ADJUST VENTILATOR SETTING TO SIMV MODE. WILL CONTINUE TO MONITOR PT.
--- NOTE | 2019-09-23 09:55 | NUR ---
PER DR. SYED TO CHANGED VENTILATOR MODE TO SIMV, RR 10 WITH PS 8. MARK THOMAS AT BEDSIDE AND AWARE. PT OFF SEDATION BUT UNABLE TO FOLLOW COMMANDS. WILL CONTINUE TO MONITOR PT.
[2019-09-23] MEDS: PANTOPRAZOLE 40 MG/10 ML VIAL INJ IV SCH ×2 (10:14→22:06)
[2019-09-23] MEDS: ENOXAPARIN SOD 40 MG/0.4 ML SYRINGE SC SCH (10:14)
[2019-09-23] MEDS: CARVEDILOL 3.125 MG TAB PO SCH ×2 (10:14→22:06)
--- NOTE | 2019-09-23 11:42 | NUR ---
DR CHANG AT BEDSIDE. NEW ORDERS TO TITRATE OFF THE NICARDIPINE DRIP TOLERATED. WILL CONTINUE TO MONITOR PT.
--- NOTE | 2019-09-23 14:10 | NUR ---
PT PLACED BACK ON AC MODE DUE TO BP INCREASING AND LOW TIDAL VOLUMES. MARK THOMAS MADE AWARE. UNABLE TO DUE ABG AT THIS TIME.
[2019-09-23] MEDS: PROPOFOL 100 ML IV SCH (14:40)
--- NOTE | 2019-09-23 15:42 | NUR ---
Nutrition Followup Note Wt: 130.0 kg (pt with + 4 edema) Pt intubated, off propofol with EN support with Jevity @ 30 ml/hr providing 864 kcals and 38 gm proteins. pt with inadequate EN support as it meets 43-53% of est energy needs and 38-47% of est protein needs. Will continue to monitor PO status, skin status, pertinent labs and weight trends. Will f/u in 2-3 days. Est energy needs 0659-2343 kcal (20-25 kcal/kg IBW 81kg) Est protein needs 81-101g (0.6-0.75g/kg BW 135.6kg, r/t elevated RFT possible CKD no HD) Will reassess per dry body wt Labs: BUN 92 H, CREAT 4.07 H, GFR 17 l, ALB 2.0 L, CA 7.5 L, GLU 130 H BM: Pt has diarrhea per RN note Skin: BS 9 high risk, full details in toddler caregiver note PES: Altered nutrition related lab values r/t current/chronic medical condition aeb elev RFTs, severe hypoalbuminemia Comments: Will continue to monitor NPO status, EN tolerance, skin status, pertinent labs and weight trends. Will f/u in 2-3 days. Rec: 1) Continue to monitor NPO status, labs, skin 2) Refer pt to OPD on DC 3) Continue current plan of care. 4) Consider TF of Osmolite 1.2 at a goal rate of 50 ml/hr per Md approval, change to Glucerna 1.2 if pt confirmed diabetic. 5) Consider adding Nephrovite and Vitamin C 500mg BID for wound healing
--- NOTE | 2019-09-23 18:30 | NUR ---
RT NOTE RECEIVED PT INTUBATED AND ON VENT V1 ON STATED SETTINGS. VENT IS PLUGGED TO RED OUTLET. ALARMS ARE ON AND AUDIBLE TO NURSING. A,BU BAG AT BEDSIDE AND CONNECTED TO O2. 8.0 ETT IS SECURED WITH ANCHORFAST WITH BITE BLOCK AT 24 CM AT THE TEETH AT THE ORAL CENTER. BS ARE CTA. PT SUCTIONED FOR SCANT RETURN. HHN GIVEN INLINE WITH 2.5 MG ALBUTEROL AND 0.5 MG ATROVENT VIA AEROGEN WITHOUT ADVERSE REACTION NOTED. CONT ORDERED. CIRCUIT TEMP 34.6, POX 96% Addendum: 09/23/19 at 1830 by Gay Gross RT Amended: Links added.
--- NOTE | 2019-09-23 19:12 | NUR ---
PT CARE REPORT GIVEN TO NOC SHIFT RN, PT CARE ENDORSED.
--- NOTE | 2019-09-23 19:15 | NUR ---
Opening notes Assumed care, laying on bed, still on vent, AC mode, no sedation but still nonresponsive, able to open eyes to shaking but doesn't follow simple commands, NGT in place infusing jevity feeding @ 30 ml/hr, car catheter draining to a clear, yellow urine, central line patent and intact, flexiseal in place, both upper and lower extremities still with edema. Bed in lowest position with side rails up, bed alarm on.Will continue care.
--- NOTE | 2019-09-23 20:07 | NUR ---
RT NOTE ROUTINE VENT CHECK DONE. PT INTUBATED AND ON VENT V1 ON STATED SETTINGS. VENT IS PLUGGED TO RED OUTLET. ALARMS ARE ON AND AUDIBLE TO NURSING. A,BU BAG AT BEDSIDE AND CONNECTED TO O2. 8.0 ETT IS SECURED WITH ANCHORFAST WITH BITE BLOCK AT 24 CM AT THE TEETH AT THE ORAL CENTER. WATER LEVEL IS ADEQUATE. CONT ORDERED. CIRCUIT TEMP 35.1, POX 95% Addendum: 09/23/19 at 2031 by Gay Gross RT Amended: Links added.
[2019-09-23] MEDS: MEROPENEM 1GM IVPB 100 ML IV SCH (22:04)
--- NOTE | 2019-09-23 22:09 | NUR ---
RT NOTE ROUTINE VENT CHECK DONE. PT INTUBATED AND ON VENT V1 ON STATED SETTINGS. VENT IS PLUGGED TO RED OUTLET. ALARMS ARE ON AND AUDIBLE TO NURSING. A,BU BAG AT BEDSIDE AND CONNECTED TO O2. 8.0 ETT IS SECURED WITH ANCHORFAST WITH BITE BLOCK AT 24 CM AT THE TEETH AT THE ORAL CENTER. BS ARE CLEAR/DIM. HHN GIVEN INLINE WITH 0.5 MG PULMICORT VIA AEROGEN WITHOUT ADVERSE REACTION NOTED. PT WAS SUCTIONED FOR SMALL RETURN. WATER LEVEL IS ADEQUATE. CONT ORDERED. CIRCUIT TEMP 34.9, POX 95% Addendum: 09/23/19 at 2314 by Gay Gross RT Amended: Links added.
[2019-09-24] VITALS (100 sets, daily range): BP systolic 119–232; BP diastolic 61–104
--- NOTE | 2019-09-24 00:05 | NUR ---
RT NOTE ROUTINE VENT CHECK DONE. PT INTUBATED AND ON VENT V1 ON STATED SETTINGS. VENT IS PLUGGED TO RED OUTLET. ALARMS ARE ON AND AUDIBLE TO NURSING. A,BU BAG AT BEDSIDE AND CONNECTED TO O2. 8.0 ETT IS SECURED WITH ANCHORFAST WITH BITE BLOCK AT 24 CM AT THE TEETH AT THE ORAL CENTER. BS ARE CLEAR/DIM. HHN GIVEN INLINE WITH 2.5 MG ALBUTEROL AND 0.5 MG ATROVENT VIA AEROGEN WITHOUT ADVERSE REACTION NOTED. PT WAS SUCTIONED FOR SMALL RETURN. WATER LEVEL IS ADEQUATE. CONT ORDERED. CIRCUIT TEMP 35.0, POX 95% Addendum: 09/24/19 at 0040 by Gay Gross RT Amended: Links added.
[2019-09-24] MEDS: InsuLIN REG 1unit/0.01ml Soln (100units/ml) SC SCH ×5 (00:07→23:46)
[2019-09-24] MEDS: ALBUTEROL SULF 2.5 MG/0.5ML(0.5%) NEB SOLN NEB SCH ×3 (00:11→18:30)
[2019-09-24] MEDS: IPRATROPIUM BROM 0.5 MG/2.5ML INH SOL NEB SCH ×3 (00:11→18:30)
[2019-09-24] MEDS: FUROSEMIDE INJECTION 100 MG in SODIUM CHL 0.9% 100 ML IV SCH ×8 (01:45→21:45)
--- NOTE | 2019-09-24 02:05 | NUR ---
RT NOTE ROUTINE VENT CHECK DONE. PT INTUBATED AND ON VENT V1 ON STATED SETTINGS. VENT IS PLUGGED TO RED OUTLET. ALARMS ARE ON AND AUDIBLE TO NURSING. A,BU BAG AT BEDSIDE AND CONNECTED TO O2. 8.0 ETT IS SECURED WITH ANCHORFAST WITH BITE BLOCK AT 24 CM AT THE TEETH AT THE ORAL LEFT. WATER LEVEL IS ADEQUATE. CONT ORDERED. CIRCUIT TEMP 35.0, POX 95% Addendum: 09/24/19 at 0208 by Gay Gross RT Amended: Links added.
--- NOTE | 2019-09-24 04:06 | NUR ---
RT NOTE ROUTINE VENT CHECK DONE. PT INTUBATED AND ON VENT V1 ON STATED SETTINGS. VENT IS PLUGGED TO RED OUTLET. ALARMS ARE ON AND AUDIBLE TO NURSING. A,BU BAG AT BEDSIDE AND CONNECTED TO O2. 8.0 ETT IS SECURED WITH ANCHORFAST WITH BITE BLOCK AT 24 CM AT THE TEETH AT THE ORAL LEFT. WATER LEVEL IS ADEQUATE. CONT ORDERED. CIRCUIT TEMP 35.1, POX 96% Addendum: 09/24/19 at 0427 by Gay Gross RT Amended: Links added.
[2019-09-24] MEDS: hydrALAZINE HCL 20 MG/ML VL IV PRN ×2 (05:20→10:00)
--- NOTE | 2019-09-24 05:45 | NUR ---
Morning care done, linens and sacral optifoam changed. Repositioned for comfort.
[2019-09-24] MEDS: ACCU-CHEK COMFORT CURVE STRIP VI SCH ×4 (06:00→23:46)
[2019-09-24] MEDS: BUDESONIDE (INHALATION) 0.5 MG/2 ML NEB NEB SCH ×2 (06:33→18:30)
[2019-09-24] MEDS: SODIUM CHLOR 0.9% PF (SALINE LOCK) 10ML VIAL/SYR IV SCH ×3 (06:40→22:19)
--- NOTE | 2019-09-24 07:26 | NUR ---
PT CARE REPORT RECEIVED FROM [facility] SHIFT RN, ASSUMED CARE OF PT. PT VS WNL, PT INTUBATED, NOT SEDATED. PT WAKENS SPONTANEOUSLY, BUT DOES NOT TRACK WITH EYES, MOVE EXTREMITIES, OR FOLLOW COMMANDS. VENT SETTINGS SAME DAY PRIOR. NO CHANGE IN PT CONDITION. WILL CONTINUE TO MONITOR PT.
--- NOTE | 2019-09-24 09:24 | NUR ---
DR LEVY AT BEDSIDE. AWAITING FURTHER ORDERS.
--- NOTE | 2019-09-24 10:08 | NUR ---
DR CHANG AT BEDSIDE, NEW ORDERS IN PLACE FOR NEUROLOGY CONSULT AND REPEAT HEAD C W/O CONTRAST. WILL CONTINUE TO MONITOR PT.
--- NOTE | 2019-09-24 10:25 | NUR ---
PT BP 218/98. PT IS UNSTABLE FOR TRANSPORT TO CT AT THIS TIME
[2019-09-24 10:33] LABS: Basophils # (auto) 0 10 ^3/uL (0-0.2); Basophils % (auto) 0.5 % (0.0-2.0); Eosinophils # (auto) 0.1 10 ^3/uL (0-0.8); Eosinophils % (auto) 1.7 % (0.0-7.0); Hematocrit 34.5 % (41.0-53.0); Hemoglobin 11.3 g/dL (13.5-17.5); Lymphocytes # (auto) 0.3 10 ^3/uL (0.4-5.4); Lymphocytes % (auto) 5.1 % (10.0-50.0); Mean Corpuscular Hemoglobin 30.7 pg (28.0-32.0); Mean Corpuscular Hgb Conc. 32.9 g/dL (32.0-36.0); Mean Corpuscular Volume 93.4 fL (80.0-100.0); Monocytes # (auto) 0.5 10 ^3/uL (0-1.3); Monocytes % (auto) 6.7 % (0.0-12.0); Neutrophils # (auto) 5.8 10 ^3/uL (1.6-8.6); Nucleated Red Blood Cells % 0.1 %; Platelet Count (auto) 113 10^3/uL (140-450); Red Blood Cells 3.69 10^6/uL (4.5-5.90); White Blood Cell 6.8 10^3/uL (4.4-10.8)
[2019-09-24 10:44] LABS: BUN/Creatinine Ratio 22.4; Calcium 7.9 mg/dL (8.5-10.1); Potassium 3.9 mmol/L (3.5-5.1)
[2019-09-24] MEDS: PANTOPRAZOLE 40 MG/10 ML VIAL INJ IV SCH ×2 (10:44→22:19)
[2019-09-24] MEDS: CARVEDILOL 3.125 MG TAB PO SCH ×2 (10:44→22:19)
[2019-09-24] MEDS: ENOXAPARIN SOD 40 MG/0.4 ML SYRINGE SC SCH (10:44)
[2019-09-24] MEDS: MEROPENEM 1GM IVPB 100 ML IV SCH ×2 (10:45→22:19)
--- NOTE | 2019-09-24 12:30 | NUR ---
DR LU AT BEDSIDE. NO NEW ORDERS IN PLACE AT THIS TIME.
[2019-09-24] MEDS: DOXYCYCLINE 100MG/250ML 250 ML IV SCH (12:32)
[2019-09-24] MEDS: PROPOFOL 100 ML IV SCH (14:40)
--- NOTE | 2019-09-24 15:00 | NUR ---
RT NOTE: PT TRANSPORTED FOR REPEAT HEAD CT. PLACED ONTO TRANSPORT VENT WITH 3 RNs AND RT. BROUGHT BACK W/O INCIDENT AND PLACED BACK ONTO BEDSIDE VENT. WILL CONTINUE TO MONITOR.
--- NOTE | 2019-09-24 16:12 | NUR ---
FULL BED BATH AND COMPLETE LINEN CHANGE PERFORMED. NEW CENTRAL LINE DRESSING PLACED.
--- NOTE | 2019-09-24 19:32 | NUR ---
DR VELA AT BEDSIDE TO ASSESS PT AND UPDATE PLAN OF CARE. MD PLACED ORDERS FOR EEG.
--- NOTE | 2019-09-24 19:50 | NUR ---
REPORT GIVEN TO NOC SHIFT RN, PT CARE ENDORSED.
--- NOTE | 2019-09-24 20:05 | NUR ---
OPENING NOTE RECEIVED REPORT FROM LATASHA FLORES AND ASSUMED CARE OF PT. PT ON VENTILATOR AND HAS BEEN OFF SEDATION >24 HOURS. CARDENE AND LASIX GTT RUNNING (SEE IV SPREADSHEET). VITAL SIGNS STABLE AT THIS TIME. PIPER CATHETER IN PLACE AND DRAINING APPROPRIATELY. TUBE FEEDINGS RUNNING AT 30 ML/HR. RESIDUALS NOTED TO BE <10 ML. WILL CONTINUE AT CURRENT RATE.
[2019-09-24] MEDS: niCARdipine 50 MG in SODIUM CHL 0.9% 230 ML IV SCH (20:30)
--- NOTE | 2019-09-24 20:49 | NUR ---
FAMILY CALL SPOKE WITH PTS SISTER MARI. PASSWORD VERIFIED. EXTENSIVELY UPDATED HER ON PT CONDITION AND PLAN OF CARE. TOLD HER DR. VELA ATTEMPTED TO CALL HER EARLIER WITH NO ANSWER. ALL QUESTIONS AND CONCERNS ADDRESSED AT THIS TIME.
[2019-09-25] VITALS (106 sets, daily range): BP systolic 120–171; BP diastolic 70–92
[2019-09-25] MEDS: FUROSEMIDE INJECTION 100 MG in SODIUM CHL 0.9% 100 ML IV SCH ×3 (00:54→05:37)
[2019-09-25] MEDS: DOXYCYCLINE 100MG/250ML 250 ML IV SCH ×2 (00:54→12:22)
[2019-09-25] MEDS: IPRATROPIUM BROM 0.5 MG/2.5ML INH SOL NEB SCH ×5 (02:37→23:59)
[2019-09-25] MEDS: ALBUTEROL SULF 2.5 MG/0.5ML(0.5%) NEB SOLN NEB SCH ×5 (02:37→23:59)
[2019-09-25] MEDS: niCARdipine 50 MG in SODIUM CHL 0.9% 230 ML IV SCH ×2 (03:14→11:41)
--- NOTE | 2019-09-25 03:14 | NUR ---
PT CARE DRESSINGS TO BILATERAL AC AREAS CHANGED. TIMED, DATED, AND INITIALED BY THIS RN. PERICARE DONE AND LOTION APPLIED TO AREAS OF DRYNESS ON BILATERAL LOWER EXTREMITIES. ORAL CARE DONE AND PT TURNED.
[2019-09-25 03:59] LABS: Potassium 3.9 mmol/L (3.5-5.1)
[2019-09-25 04:10] LABS: Albumin 1.7 g/dL (3.4-5.0); BUN/Creatinine Ratio 22.2; Bilirubin, Total 0.4 mg/dL (0.2-1.0); Calcium 7.8 mg/dL (8.5-10.1); Total Protein 5.3 g/dL (6.4-8.2)
[2019-09-25] MEDS: SODIUM CHLOR 0.9% PF (SALINE LOCK) 10ML VIAL/SYR IV SCH ×3 (05:37→21:59)
--- NOTE | 2019-09-25 05:37 | NUR ---
TUBE FEEDING ASSESSMENT PT TOLERATED TF RUNNING AT 30 ML/HR SINCE 2030 LAST NIGHT 09/23. NG TUBE POSITIVELY PLACED VIA AUSCULTATION AND ASPIRATION. RESIDUALS NOTED TO BE < 20 WHEN ASSESSED. TF CONTINUED AT 30 ML/HR.
[2019-09-25] MEDS: ACCU-CHEK COMFORT CURVE STRIP VI SCH ×4 (05:50→23:43)
[2019-09-25] MEDS: InsuLIN REG 1unit/0.01ml Soln (100units/ml) SC SCH ×4 (05:51→23:43)
[2019-09-25] MEDS: BUDESONIDE (INHALATION) 0.5 MG/2 ML NEB NEB SCH ×2 (06:23→18:36)
--- NOTE | 2019-09-25 07:45 | NUR ---
REPORT RECEIVED FROM NOC SHIFT RN, ASSUMED CARE OF PT. PT REMAINS INTUBATED, NOT SEDATED, NO CHANGE IN MENTAL STATUS. CARDENE AND LASIX DRIPS CURRENTLY RUNNING. VS WNL, BED IN LOW-LOCKED POSITION. WILL CONTINUE TO MONITOR PT.
[2019-09-25] MEDS: PANTOPRAZOLE 40 MG/10 ML VIAL INJ IV SCH ×2 (10:16→21:59)
[2019-09-25] MEDS: ENOXAPARIN SOD 40 MG/0.4 ML SYRINGE SC SCH (10:17)
[2019-09-25] MEDS: CARVEDILOL 3.125 MG TAB PO SCH ×2 (10:17→21:59)
[2019-09-25] MEDS: MEROPENEM 1GM IVPB 100 ML IV SCH ×2 (10:17→21:59)
--- NOTE | 2019-09-25 12:10 | NUR ---
BLOCK TRADER AT BEDSIDE FOR CHEST US R/T THORACENTESIS EVALUATION.
--- NOTE | 2019-09-25 12:26 | NUR ---
WOUND CARE AT BEDSIDE. INFORMED WOUND RN OF SEVERAL WOUND LOCATIONS FOR FURTHER ASSESSMENT.
--- NOTE | 2019-09-25 12:50 | NUR ---
WOUND CARE NOTE: IN TO SEE PATIENT IN ICU-CL # 9 AT THIS TIME FOR WOUND RE-EVALUATION. PATIENT HAS CURRENT MONTEZ SCORE OF 10. HE REMAINS INTUBATED, UNRESPONSIVE. PATIENT CONTINUES TO REST ON ICU LOW AIRLOSS BED. HE IS NOTED TO HAVE GENERALIZED EDEMA, WITH WEEPING BLISTERS TO BILATERAL ARMS. APPLIED THERAHONEY, OPTIFOAM GENTLE DRESSINGS TO WOUNDS. BILATERAL LOWER LEGS HAVE FLAKY HYPERKERATOTIC/XEROTIC SKIN NOTED. APPLIED HYDRAGUARD CREAM TO SKIN. NO OPEN OR WEEPING AREAS NOTED TO BLE AT THIS TIME. PENIS HAS A SMALL MUCOSAL ULCER AT MEATUS. ZGUARD APPLIED. INDWELLING PIPER REMAINS INTACT. DTI TO THE SACRUM CONTINUES TO BE PRESENT. IT HAS EVOLVED OPEN TO THAT OF A STAGE 2 PI, MEASURING 2.5 X 1 CM. APPLIED ZGAURD, OPTIFOAM GENTLE SACRAL DRESSING. PATIENT HAS INDWELLING RECTAL TUBE THAT IS LEAKING BROWN STOOL. MILD MASD NOTED TO PERIRECTAL/INTRAGLUTEAL AREA. PERICARE GIVEN, MOISTURE BARRIER CREAM APPLIED. PATIENT REPOSITIONED ONTO LEFT SIDE, REDISTRIBUTING PRESSURE POINTS WITH PILLOWS/WEDGES. RECOMMEND: EOD/PRN DRESSING CHANGES TO OPEN BLISTERS, BUE, BID APPLICATION WITH HYDRAGUARD CREAM TO BILATERAL LOJA/CALVES, WHERE DRY SKIN EXISTS, ZGUARD TO PENILE ULCER, OPEN SACRAL WOUND, CONTINUATION WITH ALL OTHER WOUND CARE ORDERS PREVIOUSLY PRESCRIBED BY MD. WOUND CARE TEAM WILL CONTINUE TO MONITOR. Addendum: 09/25/19 at 2018 by Sarah Torres RN Amended: Links added.
[2019-09-25] MEDS: PROPOFOL 100 ML IV SCH (14:40)
--- NOTE | 2019-09-25 14:56 | NUR ---
Nutrition Followup Note Wt: 132.0 kg (pt with + 4 edema) Pt intubated, off propofol with EN support with Jevity @ 30 ml/hr providing 864 kcals and 38 gm proteins. pt with inadequate EN support as it meets 43-53% of est energy needs and 38-47% of est protein needs. Will continue to monitor PO status, skin status, pertinent labs and weight trends. Will f/u in 2-3 days. Est energy needs 2027-1156 kcal (20-25 kcal/kg IBW 81kg) , Est protein needs 81-101g (0.6-0.75g/kg BW 135.6kg, r/t elevated RFT possible CKD no HD). Will reassess per dry body wt Labs: BUN 92 H, CREAT 4.15 H, ALB 2.4 L, CA 8.4 L, GLU 130 H BM: Pt has diarrhea per RN note Skin: BS 14 mod risk, full details in primary care physician note PES: Altered nutrition related lab values r/t current/chronic medical condition aeb elev RFTs, severe hypoalbuminemia Comments: Will continue to monitor NPO status, EN tolerance, skin status, pertinent labs and weight trends. Will f/u in 2-3 days. Rec: 1) Continue to monitor NPO status, labs, skin 2) Refer pt to OPD on DC 3) Continue current plan of care. 4) Consider TF of Osmolite 1.2 at a goal rate of 50 ml/hr per Md approval, change to Glucerna 1.2 if pt confirmed diabetic. 5) Consider adding Nephrovite and Vitamin C 500mg BID for wound healing
[2019-09-25] MEDS ORDERED: BUMETANIDE 1mg/4ml VIAL (0.25mg/ml) IV ONE (15:45)
--- NOTE | 2019-09-25 19:14 | NUR ---
PT CARE REPORT GIVEN TO NOC SHIFT RN, PT CARE ENDORSED.
--- NOTE | 2019-09-25 20:53 | NUR ---
FAMILY CALL SPOKE WITH PTS SISTER EVANGELINA YUNG TO UPDATE HER ON PT CONDITION AND PLAN OF CARE. TELEPHONE CONSENT OBTAINED FOR THORACENTESIS BY THIS RN AND MARK MERCADO. ALL QUESTIONS AND CONCERNS ADDRESSED AT THIS TIME.
--- NOTE | 2019-09-25 20:54 | NUR ---
PTS SISTER WOULD LIKE TO SPEAK TO MD IN REGARDS TO PT CONDITION AND POSSIBLE CHANGE IN CODE STATUS IN THE MORNING. WILL PASS INFO ON TO DAYSHIFT RN AND LEAVE NOTE ON PTS HARD CHART FOR MD TO CALL HER.
[2019-09-26] VITALS (82 sets, daily range): BP systolic 109–186; BP diastolic 62–105
[2019-09-26] MEDS: DOXYCYCLINE 100MG/250ML 250 ML IV SCH (00:02)
--- NOTE | 2019-09-26 01:58 | NUR ---
PT CARE GAVE PT CHG/BED BATH. CASI CARE DONE. WOUND CARE DONE PER WOUND CARE RECOMMENDATION TO BUE AND SACRUM WITH OPTIFOAMS REPLACED. FULL JACQUELYN AND GOWN CHANGE DONE. PT TOLERATED TURNING WELL WITH NO S/S OF DISTRESS.
[2019-09-26] MEDS: niCARdipine 50 MG in SODIUM CHL 0.9% 230 ML IV SCH ×2 (05:21→13:35)
[2019-09-26 05:26] LABS: Basophils # (auto) 0 10 ^3/uL (0-0.2); Basophils % (auto) 0.8 % (0.0-2.0); Eosinophils # (auto) 0.1 10 ^3/uL (0-0.8); Eosinophils % (auto) 2.6 % (0.0-7.0); Hematocrit 33.6 % (41.0-53.0); Hemoglobin 11.2 g/dL (13.5-17.5); Lymphocytes # (auto) 0.4 10 ^3/uL (0.4-5.4); Lymphocytes % (auto) 7.6 % (10.0-50.0); Mean Corpuscular Hgb Conc. 33.4 g/dL (32.0-36.0); Mean Corpuscular Volume 93.1 fL (80.0-100.0); Monocytes # (auto) 0.4 10 ^3/uL (0-1.3); Monocytes % (auto) 8.1 % (0.0-12.0); Neutrophils # (auto) 3.9 10 ^3/uL (1.6-8.6); Neutrophils % (auto) 80.9 % (37.0-80.0); Platelet Count (auto) 89 10^3/uL (140-450); Red Blood Cells 3.61 10^6/uL (4.5-5.90); Red Cell Distribution Width 13.7 % (11.8-14.3); White Blood Cell 4.8 10^3/uL (4.4-10.8)
[2019-09-26 05:38] LABS: Potassium 3.9 mmol/L (3.5-5.1)
[2019-09-26 05:44] LABS: Albumin 1.7 g/dL (3.4-5.0); BUN/Creatinine Ratio 22.5; Bilirubin, Total 0.5 mg/dL (0.2-1.0); Calcium 7.9 mg/dL (8.5-10.1); Total Protein 5.3 g/dL (6.4-8.2)
[2019-09-26] MEDS: ACCU-CHEK COMFORT CURVE STRIP VI SCH ×4 (05:58→23:44)
[2019-09-26] MEDS: InsuLIN REG 1unit/0.01ml Soln (100units/ml) SC SCH ×4 (05:59→23:55)
[2019-09-26] MEDS: SODIUM CHLOR 0.9% PF (SALINE LOCK) 10ML VIAL/SYR IV SCH ×3 (06:07→21:41)
--- NOTE | 2019-09-26 07:03 | NUR ---
Respiratory note: RECEIVED PATIENT ON V1 V200 VENT ORALLY INTUBATED WITH AN 8.0 ETT SECURED VIA GENOVEVA AT THE 24CM MARKING AT THE LIP, AND MECHANICALLY VENTILATED WITH THE CHARTED SETTINGS. SPO2 97%, LUNG SOUNDS DIM T/O, MODERATE AMOUNT OF THIN CLEAR SECRETIONS WHEN SUCTIONED. SKIN IS WARM/DRY TO THE TOUCH AND IS INTACT NEAR GENOVEVA SITE. THERE IS A NGT IN THE RIGHT NARE AND SECURED TO THE ETT. PITTINE EDEMA NOTED THROUGHOUT BILATERAL UPPER AND LOWER EXTREMITIES. PATIENT IS UNRESPONSIVE TO BOTH VERBAL/TACTILE STIMULI AND IS OFF ALL SEDATION. HE IS RESTING COMFORTABLY AND TOLERATING VENT WELL, NO CHANGES MADE. VENT PLUGGED INTO RED OUTLET AND ALL ALARMS ARE SET AND AUDIBLE. WILL CONTINUE TO ASSESS PATIENT WELL VENTILATOR FUNCTION. [facility] RUN INLINE.
[2019-09-26] MEDS: ALBUTEROL SULF 2.5 MG/0.5ML(0.5%) NEB SOLN NEB SCH ×3 (07:04→18:26)
[2019-09-26] MEDS: IPRATROPIUM BROM 0.5 MG/2.5ML INH SOL NEB SCH ×3 (07:04→18:26)
[2019-09-26] MEDS: BUDESONIDE (INHALATION) 0.5 MG/2 ML NEB NEB SCH ×2 (07:04→18:26)
[2019-09-26] MEDS ORDERED: BUMETANIDE 2.5mg/10ml (0.25 mg/ml) INJ IV ONE (08:45)
--- NOTE | 2019-09-26 09:12 | NUR ---
SPOKE WITH DR CHANG AROUND 0858 REGARDING HER DISCUSSION OVER PHONE WITH PATIENT SISTER EVANGELINA DECISION TO MAKE PATIENT A DNR. ORDER PLACED BY AND RN CALLED SISTER EVANGELINA AND VERIFIED CODE STATUS CHANGE TO DNR WITH SECOND RN SHANTI.
--- NOTE | 2019-09-26 09:25 | NUR ---
DR Chantel SYED AT BEDSIDE NO NEW ORDERS, AWARE SISTER MADE PATIENT A DNR, AWARE PATIENT STILL NOT WAKING UP ENOUGH FOR CPAP TRIAL. AWARE OF ABG AND PENDING THORACENTESIS TODAY HE ORDERED YESTERDAY.
--- NOTE | 2019-09-26 10:32 | NUR ---
DR BORREGO AT BEDSIDE, PERFORMED RIGHT SIDE THORACENTESIS WITH MOTORCYCLE BUILDER AT BEDSIDE WELL. PATIENT REMAINED STABLE AND TOLERATED PROCEDURE WELL. 650 ML FLUID OBTAINED. PETROLEUM GAUZE AND TEGADERM DSG IN PLACE OVER SITE ONCE FULLY INTACT CATHETER WAS REMOVED. NO BLEEDING ASSESSED FROM SITE.
[2019-09-26] MEDS: PANTOPRAZOLE 40 MG/10 ML VIAL INJ IV SCH ×2 (11:10→21:41)
[2019-09-26] MEDS: MEROPENEM 1GM IVPB 100 ML IV SCH ×2 (11:10→21:40)
[2019-09-26] MEDS: ENOXAPARIN SOD 40 MG/0.4 ML SYRINGE SC SCH (11:11)
[2019-09-26] MEDS: CARVEDILOL 3.125 MG TAB PO SCH (11:11)
--- NOTE | 2019-09-26 12:07 | NUR ---
DR CHANG AT BEDSIDE, NEW ORDER TO TITRATE OFF CARDENE GTT AND TO START CLONIDINE 0.3 MG VIA NGT Q8H PRN FOR SBP ABOVE 160. DEYSI GTT TURNED TO 2.5 MG/HR AT THIS TIME.
--- NOTE | 2019-09-26 13:00 | NUR ---
DEYSI GTT OFF BP 131/84 Addendum: 09/26/19 at 1511 by Manjinder Ortiz RN YOON
--- NOTE | 2019-09-26 13:10 | NUR ---
CXR TAKEN AFTER THORACENTESIS
--- NOTE | 2019-09-26 13:37 | NUR ---
EARLENEX AVAILABLE NOW IN PHARMACY, WILL GIVE ONCE PHARMACY SENDS MEDICATION. Addendum: 09/26/19 at 1422 by Manjinder Ortiz RN MED AVAILABLE BUT DOSE CHANGED PER PHARMACY TO 2.5 MG IV BID Addendum: 09/26/19 at 1422 by Manjinder Ortiz RN NOT DUE UNTIL 1799 RN DID NOT GIVE YET
--- NOTE | 2019-09-26 14:22 | NUR ---
DR VELA AT BEDSIDE ASSESSED PATIENT, AWARE PATIENT RANDOMLY OPENS EYES SPONTANEOUSLY WELL TO PAIN/SHAKING AND WILL TURN HEAD SIDE TO SIDE RANDOMLY WITHOUT FOLLOWING COMMANDS
[2019-09-26] MEDS: cloNIDine HCL 0.1 MG TAB NG PRN ×2 (15:03→22:37)
[2019-09-26] MEDS: Jevity 1.2 Cal/Fiber 1 Liter GT SCH (15:07)
--- NOTE | 2019-09-26 15:09 | NUR ---
CLONIDINE GIVEN ORDERED PRN FOR SBP ABOVE 160 X 2 BP CYCLES Q15 MINS.
[2019-09-26] MEDS: BUMETANIDE 1mg/4ml VIAL (0.25mg/ml) IV SCH (18:11)
[2019-09-26] MEDS ORDERED: amLODIPine BESYLATE 5 MG TAB PO ONE (20:00)
--- NOTE | 2019-09-26 20:00 | NUR ---
TF held temp., 70 ml residuals noted
[2019-09-26] MEDS: CARVEDILOL 12.5 MG TAB PO SCH (21:42)
--- NOTE | 2019-09-26 23:30 | NUR ---
Accucheck 72, TF residuals 20 ml, restarted feeding at 10 ml/hr
[2019-09-26] MEDS: hydrALAZINE HCL 20 MG/ML VL IV SCH (23:41)
[2019-09-27] VITALS (43 sets, daily range): BP systolic 116–199; BP diastolic 69–91
[2019-09-27] MEDS: IPRATROPIUM BROM 0.5 MG/2.5ML INH SOL NEB SCH ×4 (00:10→18:55)
[2019-09-27] MEDS: ALBUTEROL SULF 2.5 MG/0.5ML(0.5%) NEB SOLN NEB SCH ×4 (00:10→18:55)
--- NOTE | 2019-09-27 02:00 | NUR ---
No residuals via TF, increased rate to 20 ml/hr
--- NOTE | 2019-09-27 04:30 | NUR ---
Patient bathe/linen change Patient given complete bath w/ CHG wipes. Skin integrity assessed for any changes. Linens, gown and sacral optifoam changed. Patient repositioned for comfort.
--- NOTE | 2019-09-27 05:00 | NUR ---
TF residuals 60 ml, kept rate @ 20 ml/hr
--- NOTE | 2019-09-27 05:30 | NUR ---
Urine specimen collected and sent to lab for crea, protein and sodium determination.
[2019-09-27] MEDS: hydrALAZINE HCL 20 MG/ML VL IV SCH ×4 (05:40→23:15)
[2019-09-27] MEDS: BUMETANIDE 1mg/4ml VIAL (0.25mg/ml) IV SCH ×2 (05:41→17:37)
[2019-09-27] MEDS: ACCU-CHEK COMFORT CURVE STRIP VI SCH ×3 (05:41→17:55)
[2019-09-27] MEDS: InsuLIN REG 1unit/0.01ml Soln (100units/ml) SC SCH ×3 (05:41→17:55)
[2019-09-27] MEDS: SODIUM CHLOR 0.9% PF (SALINE LOCK) 10ML VIAL/SYR IV SCH ×3 (05:41→22:40)
--- NOTE | 2019-09-27 07:50 | NUR ---
UNABLE TO OBTAIN TEMP ORALLY OR AXILLARY. RN PREVIOUSLY PLACED WARM BLANKETS ON PT. PLACED BEAR HUGGER ON HIGH TEMP ON PT. MONITORING TEMP.
[2019-09-27] MEDS: niCARdipine 50 MG in SODIUM CHL 0.9% 230 ML IV SCH ×3 (08:35→14:27)
[2019-09-27 08:47] LABS: Urine Bacteria FEW /hpf (None Seen); Urine Blood TRACE /uL (Negative); Urine Mucus FEW (None Seen); Urine Specific Gravity 1.008 (1.001-1.035); Urine WBC 2 /hpf (0 - 3)
[2019-09-27 08:49] LABS: Protein, Urine 119.2 mg/dL (0.0-11.9)
--- NOTE | 2019-09-27 09:25 | NUR ---
DR. ENG Provider/Hospitalist at bedside. GAVE UPDATE ON PT. NEW ORDERS RECEIVED.
[2019-09-27 09:46] LABS: Basophils # (auto) 0 10 ^3/uL (0-0.2); Basophils % (auto) 0.5 % (0.0-2.0); Eosinophils # (auto) 0.1 10 ^3/uL (0-0.8); Hematocrit 29.6 % (41.0-53.0); Hemoglobin 9.8 g/dL (13.5-17.5); Lymphocytes # (auto) 0.4 10 ^3/uL (0.4-5.4); Lymphocytes % (auto) 10.1 % (10.0-50.0); Mean Corpuscular Hemoglobin 30.8 pg (28.0-32.0); Mean Corpuscular Volume 93.3 fL (80.0-100.0); Monocytes # (auto) 0.4 10 ^3/uL (0-1.3); Neutrophils # (auto) 3.3 10 ^3/uL (1.6-8.6); Neutrophils % (auto) 77.4 % (37.0-80.0); Platelet Count (auto) 77 10^3/uL (140-450); Red Blood Cells 3.17 10^6/uL (4.5-5.90); Red Cell Distribution Width 13.7 % (11.8-14.3); White Blood Cell 4.3 10^3/uL (4.4-10.8)
[2019-09-27] MEDS: MEROPENEM 1GM IVPB 100 ML IV SCH ×2 (09:47→22:40)
[2019-09-27] MEDS: CARVEDILOL 12.5 MG TAB PO SCH ×2 (09:47→22:40)
[2019-09-27] MEDS: PANTOPRAZOLE 40 MG/10 ML VIAL INJ IV SCH ×2 (09:47→22:40)
[2019-09-27] MEDS: amLODIPine BESYLATE 5 MG TAB PO SCH (09:48)
[2019-09-27] MEDS: ENOXAPARIN SOD 40 MG/0.4 ML SYRINGE SC SCH (09:48)
--- NOTE | 2019-09-27 10:00 | NUR ---
AUSCULTATED GOOD PLACEMENT WITH NGT. NO RESIDUAL FROM TF.
[2019-09-27 10:04] LABS: BUN/Creatinine Ratio 20.8; Potassium 3.9 mmol/L (3.5-5.1)
--- NOTE | 2019-09-27 10:15 | NUR ---
UNABLE TO OBTAIN ORAL OR AXILLARY TEMP. BEAR HUGGER REMAINS IN PLACE.
--- NOTE | 2019-09-27 11:40 | NUR ---
DR. CHANG Provider/Hospitalist at bedside. GAVE UPDATE ON PT.
--- NOTE | 2019-09-27 11:45 | NUR ---
TEMP 97.6 ORALLY. DECREASED BEAR HUGGER TO MED. HEAT.
[2019-09-27] MEDS: BUDESONIDE (INHALATION) 0.5 MG/2 ML NEB NEB SCH ×2 (13:33→18:55)
--- NOTE | 2019-09-27 14:10 | NUR ---
TEMP INCREASED TO 98.4 ORALLY. TURNED OFF BEAR HUGGER.
[2019-09-27] MEDS: Jevity 1.2 Cal/Fiber 1 Liter GT SCH (14:27)
--- NOTE | 2019-09-27 14:30 | NUR ---
AUSCULTATED GOOD PLACEMENT WITH NGT. NO EMESIS. RESIDUAL 10CC FROM TF. CONTINUING JEVITY AT 20 CC/HR. BOWEL SOUNDS HYPOACTIVE ALL FOUR QUADRANTS.
--- NOTE | 2019-09-27 15:40 | NUR ---
DR. PETERSEN Provider/Hospitalist at bedside. GAVE UPDATE ON PT.
--- NOTE | 2019-09-27 16:35 | NUR ---
DR. VELA Provider/Hospitalist at bedside. GAVE UPDATE ON PT.
[2019-09-27] MEDS: cloNIDine HCL 0.1 MG TAB NG PRN (16:59)
--- NOTE | 2019-09-27 16:59 | NUR ---
BP 193/83. MED. PT. WITH CLONIDINE 0.3 MG. VIA NGT. MONITORING BP.
--- NOTE | 2019-09-27 17:56 | NUR ---
SBP 189. GAVE PT. SCHEDULED HYDRALAZINE 10 MG. IVP PREVIOUSLY. MONITORING BP.
--- NOTE | 2019-09-27 19:15 | NUR ---
REPORT RECIEVED FROM DAYSHIFT RN. ASSUMED CARE OF PT. VSS STABLE WITH NO DISTRESS OBSERVED. PT IS MECHANICALLY VENTILATED SET RATE 14 AND BREATHING 14 BREATHS/MIN. CLEAR/DIMINISHED LUNG SOUNDS. SEDATION HAS BEEN OFF FOR 5 DAYS. PT DOES TURN HEAD AND WITHDRAW WHEN SUCTIONED. NO EXTREMITY MOVEMENT NOTED. SR ON MONITOR. CARDENE GTT HAS BEEN HELD FOR DAYSHIFT RN AND BP STABLE AT THIS TIME. HYPOACTIVE BS NOTED. FLEXISEAL AND PIPER IN PLACE AND DRAINING APPROPRIATELY. PT TURNED AND ORAL CARE DONE. WILL CONTINUE TO MONITOR AND REASSESS PT.
--- NOTE | 2019-09-27 21:45 | NUR ---
REPORT GIVEN TO MARK VENTURA TO ASSUME CARE OF PT.
--- NOTE | 2019-09-27 22:00 | NUR ---
ASSUMED CARE ASSUMED CARE OF MALE PT ORALLY INTUBATED. PT ON NO SEDATION. OPENS EYES TO TACTILE STIMULI. WITHDRAWS DURING ORAL CARE AND TURNING. WHEN NOT STIMULATED PT SLEEPS. PT UNABLE TO TRACK. UNABLE TO FOLLOW COMMANDS. PUPILS EQUAL AND REACTIVE. COUGH AND GAG HYPOACTIVE. SR ON SCHOOL PSYCHOLOGIST ASSISTANT WITH ELEVATED BP. SCHEDULED BP MEDS TO BE GIVEN. SEE EMAR. SEE VITAL SIGN SPREADSHEET. R. IJ TLC IN PLACE WITH [facility] DRESSING. ALL PORTS PATENT.NGT TO R. NARE WITH JEVITY FEEDING INFUSING AT 20 ML/HR. 5 ML RESIDUAL ASPIRATED/RETURNED. PLACEMENT VERIFIED. PT WITH NON INTACT BLISTERS TO WEST FOREARMS WITH CDI OPTIFOAM DRESSING. SCROTAL EDEMA AND PEELING SKIN TO SCROTUM OBSERVED. WEST LOWER EXTREMITIES WITH APPARENT VENOUS STAINING AND PEELING SKIN. WEST LOWER EXTREMITIES OFFLOADED WITH PILLOWS. OPTIFOAM GENTLE SACRAL DRESSING IN PLACE TO COCCYX OVER PRESSURE INJURY. PILLOWS USED TO OFFLOAD BONY PROMINENCES. PIPER TO GRAVITY DRAINING CLEAR YELLOW URINE. FLEXISEAL TO GRAVITY DRAINING LIQUID DARK BROWN STOOL. NO INDICATION OF PAIN OBSERVED. BED IN LOWEST LOCKED POSITION. ALARMS ON AND AUDIBLE. HOB ELEVATED 40 DEGREES. PT IN FULL VIEW OF RN STATION. WILL CONTINUE TO MONITOR.
[2019-09-28] VITALS (101 sets, daily range): BP systolic 139–208; BP diastolic 61–93
[2019-09-28] MEDS: ALBUTEROL SULF 2.5 MG/0.5ML(0.5%) NEB SOLN NEB SCH ×5 (00:05→23:55)
[2019-09-28] MEDS: IPRATROPIUM BROM 0.5 MG/2.5ML INH SOL NEB SCH ×5 (00:05→23:54)
[2019-09-28] MEDS: InsuLIN REG 1unit/0.01ml Soln (100units/ml) SC SCH ×5 (00:50→23:36)
[2019-09-28] MEDS: ACCU-CHEK COMFORT CURVE STRIP VI SCH ×5 (00:50→23:36)
--- NOTE | 2019-09-28 02:07 | NUR ---
ELEVATED BP PT BP 186/81 PRN CLONIDINE GIVEN VIA NGT PER ORDER. SEE EMAR.
[2019-09-28] MEDS: cloNIDine HCL 0.1 MG TAB NG PRN ×2 (02:14→10:43)
[2019-09-28] MEDS: niCARdipine 50 MG in SODIUM CHL 0.9% 230 ML IV SCH ×3 (02:17→22:17)
[2019-09-28] MEDS: hydrALAZINE HCL 20 MG/ML VL IV SCH ×4 (04:30→23:36)
[2019-09-28] MEDS: BUMETANIDE 1mg/4ml VIAL (0.25mg/ml) IV SCH (05:38)
[2019-09-28] MEDS: SODIUM CHLOR 0.9% PF (SALINE LOCK) 10ML VIAL/SYR IV SCH ×3 (05:56→21:44)
[2019-09-28 06:04] LABS: Basophils # (auto) 0 10 ^3/uL (0-0.2); Basophils % (auto) 0.6 % (0.0-2.0); Eosinophils # (auto) 0.1 10 ^3/uL (0-0.8); Eosinophils % (auto) 2.3 % (0.0-7.0); Hematocrit 27.1 % (41.0-53.0); Hemoglobin 9.2 g/dL (13.5-17.5); Lymphocytes # (auto) 0.5 10 ^3/uL (0.4-5.4); Lymphocytes % (auto) 9.7 % (10.0-50.0); Mean Corpuscular Hemoglobin 31.5 pg (28.0-32.0); Mean Corpuscular Volume 92.7 fL (80.0-100.0); Monocytes # (auto) 0.5 10 ^3/uL (0-1.3); Monocytes % (auto) 8.7 % (0.0-12.0); Neutrophils # (auto) 4.2 10 ^3/uL (1.6-8.6); Neutrophils % (auto) 78.7 % (37.0-80.0); Nucleated Red Blood Cells % 0.1 %; Platelet Count (auto) 87 10^3/uL (140-450); Red Blood Cells 2.92 10^6/uL (4.5-5.90); Red Cell Distribution Width 13.8 % (11.8-14.3); White Blood Cell 5.3 10^3/uL (4.4-10.8)
[2019-09-28] MEDS: BUDESONIDE (INHALATION) 0.5 MG/2 ML NEB NEB SCH ×2 (06:25→18:25)
[2019-09-28 06:28] LABS: Potassium 3.8 mmol/L (3.5-5.1)
[2019-09-28 06:47] LABS: BUN/Creatinine Ratio 21.8; Calcium 7.8 mg/dL (8.5-10.1)
--- NOTE | 2019-09-28 08:00 | NUR ---
DID NOT REPOSITION PATIENT AT THIS TIME. PT B/P RISES WITH STIMULATION. B/P CURRENTLY 196/92. WILL CONTINUE TO REASSESS.
[2019-09-28] MEDS: MEROPENEM 1GM IVPB 100 ML IV SCH ×2 (09:21→21:44)
[2019-09-28] MEDS: PANTOPRAZOLE 40 MG/10 ML VIAL INJ IV SCH ×2 (09:21→21:44)
[2019-09-28] MEDS: CARVEDILOL 12.5 MG TAB PO SCH ×2 (09:22→21:46)
[2019-09-28] MEDS: amLODIPine BESYLATE 5 MG TAB PO SCH (09:23)
[2019-09-28] MEDS: ENOXAPARIN SOD 30 MG/0.3 ML SYRINGE SC SCH (09:24)
--- NOTE | 2019-09-28 10:41 | NUR ---
SPOKE WITH CHARLENE OVER THE PHONE. UPDATED MD ON PATIENT STATUS. NEW ORDERS RECIEVED.
--- NOTE | 2019-09-28 11:13 | NUR ---
DR CHANG AT BEDSIDE
--- NOTE | 2019-09-28 11:32 | NUR ---
Nutrition Followup Note Wt: 130.4 kg (pt with + 4 edema) Pt intubated, off propofol with EN support with Jevity ordered @ 30 ml/hr providing 864 kcals and 38 gm proteins. pt with inadequate EN support as it meets 43-53% of est energy needs and 38-47% of est protein needs. Pt received 412 ml of TF 09/26 per Rn note. Please consider changing TF order to Osmolite 1.2 to reflect nationwide Jevity 1.2 shortage. Est energy needs 0025-9477 kcal (20-25 kcal/kg IBW 81kg) , Est protein needs 81-101g (0.6-0.75g/kg BW 135.6kg, r/t elevated RFT possible CKD no HD). Will reassess per dry body wt Labs: BUn 102H, Creat 4.68H, Ca 7.8L, Alb 1.7L BM: Pt with 200 ml stool 09/27 per RN note Skin: BS 12 high risk, full details in home health care social worker note PES: Altered nutrition related lab values r/t current/chronic medical condition aeb elev RFTs, severe hypoalbuminemia Comments: Will continue to monitor NPO status, EN tolerance, skin status, pertinent labs and weight trends. Will f/u in 2-3 days. Rec: 1) Continue to monitor NPO status, labs, skin 2) Refer pt to OPD on DC 3) Continue current plan of care. 4) Consider TF of Osmolite 1.2 at a goal rate of 50 ml/hr per Md approval 5) Consider adding Nephrovite and Vitamin C 500mg BID for wound healing
--- NOTE | 2019-09-28 13:05 | NUR ---
DR ENG AT BEDSIDE. NO NEW ORDERS GIVEN
--- NOTE | 2019-09-28 19:30 | NUR ---
OPENING SHIFT RECEIVED REPORT FROM DAY SHIFT RN. ASSUMED CARE OF PATIENT. PATIENT INTUBATED AND OFF SEDATION. RIGHT INTERNAL JUGULAR TLC - CLEAN/DRY/INTACT. PIPER AND FLEXISEAL HUNG TO GRAVITY. REPOSITIONED FOR COMFORT. BED IN LOWEST POSITION, SIDE RAILS UP X2. WILL CONTINUE TO MONITOR.
[2019-09-29] VITALS (67 sets, daily range): BP systolic 144–188; BP diastolic 61–85
--- NOTE | 2019-09-29 03:20 | NUR ---
MORNING CARE PERFORMED MORNING CARE WITH CHG WIPES AND WASH CLOTHS TO THE FACE. FULL LINEN CHANGE AND GOWN CHANGED. SKIN REASSESSED - OPEN SKIN AREAS DRESSED WITH OPTIFOAMS. ORAL AND PIPER CARE PERFORMED. REPOSITIONED FOR COMFORT. BED IN LOWEST POSITION, SIDE RAILS UP X2. WILL CONTINUE TO MONITOR.
[2019-09-29] MEDS: cloNIDine HCL 0.1 MG TAB NG PRN (03:51)
[2019-09-29] MEDS: hydrALAZINE HCL 20 MG/ML VL IV SCH ×4 (05:00→23:13)
[2019-09-29 05:31] LABS: Calcium 7.7 mg/dL (8.5-10.1); Potassium 3.9 mmol/L (3.5-5.1)
[2019-09-29 05:34] LABS: BUN/Creatinine Ratio 20.9
[2019-09-29] MEDS: IPRATROPIUM BROM 0.5 MG/2.5ML INH SOL NEB SCH ×3 (06:16→18:14)
[2019-09-29] MEDS: BUDESONIDE (INHALATION) 0.5 MG/2 ML NEB NEB SCH ×2 (06:16→18:14)
[2019-09-29] MEDS: ALBUTEROL SULF 2.5 MG/0.5ML(0.5%) NEB SOLN NEB SCH ×3 (06:16→18:14)
--- NOTE | 2019-09-29 06:19 | NUR ---
Respiratory note: RECEIVED PATIENT ON V1 V200 VENT ORALLY INTUBATED WITH AN 8.0 ETT SECURED VIA GENOVEVA AT THE 24CM MARKING AT THE LIP, AND MECHANICALLY VENTILATED WITH THE ABOVE CHARTED SETTINGS. SPO2 99%, LUNG SOUNDS DIM T/O, MODERATE AMOUNT OF THIN CLEAR SECRETIONS WHEN SUCTIONED. SKIN IS WARM/DRY TO THE TOUCH AND IS INTACT NEAR GENOVEVA SITE. THERE IS A NGT IN THE RIGHT NARE AND SECURED TO THE ETT. PITTING EDEMA NOTED THROUGHOUT BILATERAL UPPER AND LOWER EXTREMITIES. PATIENT IS UNRESPONSIVE TO BOTH VERBAL/TACTILE STIMULI AND IS OFF ALL SEDATION. HE IS RESTING COMFORTABLY AND TOLERATING VENT WELL, NO CHANGES MADE. VENT PLUGGED INTO RED OUTLET AND ALL ALARMS ARE SET AND AUDIBLE. WILL CONTINUE TO ASSESS PATIENT WELL VENTILATOR FUNCTION. [employer] RUN INLINE.
[2019-09-29] MEDS: ACCU-CHEK COMFORT CURVE STRIP VI SCH ×3 (06:22→18:05)
[2019-09-29] MEDS: SODIUM CHLOR 0.9% PF (SALINE LOCK) 10ML VIAL/SYR IV SCH ×3 (06:22→22:00)
[2019-09-29] MEDS: InsuLIN REG 1unit/0.01ml Soln (100units/ml) SC SCH ×3 (06:22→18:04)
--- NOTE | 2019-09-29 07:20 | NUR ---
END OF SHIFT REPORT GIVEN TO DAY SHIFT RN. CARE ENDORSED.
--- NOTE | 2019-09-29 08:00 | NUR ---
Patient received with no changes from report. Patient non responsive but otherwise in normotensive state. Patient turned and passive ROM done.
[2019-09-29] MEDS: niCARdipine 50 MG in SODIUM CHL 0.9% 230 ML IV SCH ×2 (08:17→18:17)
[2019-09-29] MEDS: ENOXAPARIN SOD 30 MG/0.3 ML SYRINGE SC SCH (10:41)
[2019-09-29] MEDS: MEROPENEM 1GM IVPB 100 ML IV SCH ×2 (10:41→22:00)
[2019-09-29] MEDS: PANTOPRAZOLE 40 MG/10 ML VIAL INJ IV SCH ×2 (10:42→22:00)
[2019-09-29] MEDS: amLODIPine BESYLATE 5 MG TAB PO SCH (10:43)
[2019-09-29] MEDS: CARVEDILOL 12.5 MG TAB PO SCH ×2 (10:43→22:00)
--- NOTE | 2019-09-29 11:58 | NUR ---
Patient without issues at this time. Patient has been evaluated by Pulmonary MD. Patient changed to SIMV at 10 and has tolerated breathing well. ABG to be drawn this hour.
[2019-09-29] MEDS: FUROSEMIDE 20 MG/2 ML VIAL IV SCH (14:00)
--- NOTE | 2019-09-29 17:28 | NUR ---
Patient remains stable at end of shift. MD Britton (neuro) stated that patient must remain on intubation tube as he cannot protect his airway. Patient has no issues at this time.
[2019-09-30] VITALS (37 sets, daily range): BP systolic 122–170; BP diastolic 56–80
[2019-09-30] MEDS: cloNIDine HCL 0.1 MG TAB NG PRN (00:13)
[2019-09-30] MEDS: ACCU-CHEK COMFORT CURVE STRIP VI SCH ×4 (00:23→18:29)
[2019-09-30] MEDS: InsuLIN REG 1unit/0.01ml Soln (100units/ml) SC SCH ×4 (00:23→18:00)
[2019-09-30] MEDS: ALBUTEROL SULF 2.5 MG/0.5ML(0.5%) NEB SOLN NEB SCH ×4 (00:32→18:04)
[2019-09-30] MEDS: IPRATROPIUM BROM 0.5 MG/2.5ML INH SOL NEB SCH ×4 (00:32→18:04)
[2019-09-30 04:07] LABS: Basophils # (auto) 0.1 10 ^3/uL (0-0.2); Basophils % (auto) 0.8 % (0.0-2.0); Eosinophils # (auto) 0.2 10 ^3/uL (0-0.8); Hematocrit 28.7 % (41.0-53.0); Hemoglobin 9.5 g/dL (13.5-17.5); Lymphocytes # (auto) 0.4 10 ^3/uL (0.4-5.4); Lymphocytes % (auto) 6.2 % (10.0-50.0); Mean Corpuscular Hemoglobin 30.6 pg (28.0-32.0); Mean Corpuscular Hgb Conc. 32.9 g/dL (32.0-36.0); Monocytes # (auto) 0.4 10 ^3/uL (0-1.3); Monocytes % (auto) 5.5 % (0.0-12.0); Neutrophils # (auto) 5.5 10 ^3/uL (1.6-8.6); Neutrophils % (auto) 84.5 % (37.0-80.0); Platelet Count (auto) 82 10^3/uL (140-450); Red Blood Cells 3.09 10^6/uL (4.5-5.90); Red Cell Distribution Width 13.2 % (11.8-14.3); White Blood Cell 6.6 10^3/uL (4.4-10.8)
[2019-09-30] MEDS: niCARdipine 50 MG in SODIUM CHL 0.9% 230 ML IV SCH ×3 (04:17→22:18)
[2019-09-30 04:32] LABS: BUN/Creatinine Ratio 21.6; Calcium 7.5 mg/dL (8.5-10.1)
[2019-09-30] MEDS: hydrALAZINE HCL 20 MG/ML VL IV SCH ×4 (05:10→21:49)
--- NOTE | 2019-09-30 05:47 | NUR ---
MORNING CARE / CENTRAL LINE DRESSING CHANGE PERFORMED MORNING CARE WITH CHG WIPES AND WASH CLOTHS TO THE FACE. FULL LINEN CHANGE AND GOWN CHANGED. SKIN REASSESSED - OPEN SKIN AREAS DRESSED WITH OPTIFOAMS. ORAL AND PIPER CARE PERFORMED. CENTRAL LINE DRESSING CHANGED. REPOSITIONED FOR COMFORT. BED IN LOWEST POSITION, SIDE RAILS UP X2. WILL CONTINUE TO MONITOR.
[2019-09-30] MEDS: BUDESONIDE (INHALATION) 0.5 MG/2 ML NEB NEB SCH ×2 (05:51→18:04)
[2019-09-30] MEDS: SODIUM CHLOR 0.9% PF (SALINE LOCK) 10ML VIAL/SYR IV SCH ×3 (06:00→21:49)
--- NOTE | 2019-09-30 07:20 | NUR ---
END OF SHIFT REPORT GIVEN TO DAY SHIFT RN. CARE ENDORSED.
--- NOTE | 2019-09-30 08:38 | NUR ---
Pt opens eyes to simulation and frowns but does not track .moves head side to side voluntarily. In sinus rythym quite oedematous pitting 4 to five bilateral upper and lower extremities 2 liters removed with Dialysis 09/28 Pt had a good cough reflex opens eyes and frowns Chest X Ray -ET high up same advanced by 3 cm Addendum: 09/30/19 at 1008 by DIAZ DE LEON RN RN Pt hyporthemic 93.axilla and oral warm blankets and light applied Addendum: 09/30/19 at 1012 by DIAZ DE LEON RN RN Pt put on CPAP 5 and PS 5 taking good VT 650 and sometimes dropp to 80 mls none tachypnoeic breathing 18 to 22 Pt sister Mary Lou says pt cant see well without glasses .Will bring glasses to the lobby charge nurse aware Addendum: 09/30/19 at 1153 by DIAZ DE LEON RN RN Dialysis done on my other pt not Mr Ayde Miller wants to put Jesus for possible Dialysis in am Pt was extubated at 1135 and on 35 % cool mist
--- NOTE | 2019-09-30 09:35 | NUR ---
PT ON CPAP WEANING TRIAL PER DR SYED.
[2019-09-30] MEDS: MEROPENEM 1GM IVPB 100 ML IV SCH ×2 (10:00→21:48)
[2019-09-30] MEDS: amLODIPine BESYLATE 5 MG TAB PO SCH (10:00)
[2019-09-30] MEDS: FUROSEMIDE 20 MG/2 ML VIAL IV SCH (10:00)
[2019-09-30] MEDS: PANTOPRAZOLE 40 MG/10 ML VIAL INJ IV SCH ×2 (10:57→21:49)
[2019-09-30] MEDS: ENOXAPARIN SOD 30 MG/0.3 ML SYRINGE SC SCH (10:58)
--- NOTE | 2019-09-30 10:58 | NUR ---
assessment Patient is a 44 year old male who is on a vent in ICU. Per patients sister Mary Lou prior to admission patient lived home with his mother and needed assistance. Per Mary Lou she and patients mother help him with his ADL's. Mary Lou informed me patient had called her and informed her that he fell and couldn't get up. Mary Lou called 911 and patient was admitted and is now on a vent. Mary Lou informed me patients traffic worker is Dr De La Fuente in [place]. I informed Mary Lou patients post discharge needs to be determined after extubation and prior to discharge. I will continue to monitor and follow up as appropriate. Mary Lou verbalized understanding. Addendum: 09/30/19 at 1102 by Colette SILVA Amended: Links added.
[2019-09-30] MEDS: CARVEDILOL 12.5 MG TAB PO SCH ×2 (10:59→21:49)
--- NOTE | 2019-09-30 11:07 | NUR ---
Nutrition Followup Note Wt: 132.3 kg (pt with + 4 edema) Pt intubated and not sedated. Per RN note pt received dialysis 09/28, 2 liters of fluid removed from lower extremities. Consider changing TF to Nepro CS 1.8 kcal at 45 ml/hr and 1 packet prostat TID if pt is on regularly scheduled HD. Est energy needs 8310-9558 kcal (20-25 kcal/kg IBW 81kg) , Est protein needs 79-99g (0.6-0.75g/kg 132.3kg, r/t elevated RFT possible CKD no HD). Will reassess per dry body wt Consider increasing protein needs to 132-158g 1-1.2g/kg BW 132.3kg if pt is on continued HD Labs: BUn 108H, Creat 5.01H, Alb 1.7L, Ca 7.5L, GLUC 127H BM: Pt with 900 ml stool 09/29 per RN note Skin: BS 11 high risk, full details in career services representative note PES: Altered nutrition related lab values r/t current/chronic medical condition aeb elev RFTs, severe hypoalbuminemia Comments: Will continue to monitor NPO status, EN tolerance, skin status, pertinent labs and weight trends. Will f/u in 2-3 days. Rec: 1) Continue to monitor NPO status, labs, skin 2) Refer pt to OPD on DC 3) Continue current plan of care. 4) Consider TF of Osmolite 1.2 at a goal rate of 50 ml/hr per Md approval 5) Consider adding Nephrovite and Vitamin C 500mg BID for wound healing
--- NOTE | 2019-09-30 11:35 | NUR ---
PT WAS EXTUBATED, PER DR SYED, AND PLACED ON 30% COOL MYST VIA AEROSOL MASK. PT TOLERATING WELL. NO SOB, STRIDOR OR ANY OTHER ACUTE DISTRESS NOTED. 100% O2 SATS, HR 79 BPM, RR14 BPM, BP 157/70. WILL CONTINUE TO MONITOR PT.
[2019-09-30] MEDS ORDERED: HEPARIN SODIUM (PORCINE) 5000 UNITS/ML 1ML VIAL IV ONE (15:30)
--- NOTE | 2019-09-30 19:30 | NUR ---
REPORT RECEIVED, ASSUMED CARE.
--- NOTE | 2019-09-30 21:56 | NUR ---
PER [facility] NO FLU VACCINE AVAILABLE, THEY WILL SEND PNEUMONIA VACCINE.
[2019-09-30] MEDS ORDERED: PNEUMOCOCCAL VACC POLYS 25 MCG/0.5 ML VIAL IM ONE (22:00)
[2019-10-01] VITALS (17 sets, daily range): BP systolic 120–166; BP diastolic 58–82
[2019-10-01] MEDS: IPRATROPIUM BROM 0.5 MG/2.5ML INH SOL NEB SCH ×5 (00:14→22:34)
[2019-10-01] MEDS: ALBUTEROL SULF 2.5 MG/0.5ML(0.5%) NEB SOLN NEB SCH ×5 (00:14→22:34)
--- NOTE | 2019-10-01 02:13 | NUR ---
PLACED PT ON WARMING MEASURES.
[2019-10-01 03:43] LABS: BUN/Creatinine Ratio 20.1; Calcium 7.9 mg/dL (8.5-10.1); Potassium 4.1 mmol/L (3.5-5.1)
[2019-10-01] MEDS: ACCU-CHEK COMFORT CURVE STRIP VI SCH ×4 (03:48→18:00)
[2019-10-01] MEDS: hydrALAZINE HCL 20 MG/ML VL IV SCH ×4 (05:00→23:38)
--- NOTE | 2019-10-01 05:36 | NUR ---
Patient bathe/linen change Patient given complete bath. Skin integrity assessed for any changes. Linens changed. Patient repositioned for comfort.
[2019-10-01] MEDS: SODIUM CHLOR 0.9% PF (SALINE LOCK) 10ML VIAL/SYR IV SCH ×3 (05:52→22:00)
[2019-10-01] MEDS: InsuLIN REG 1unit/0.01ml Soln (100units/ml) SC SCH ×4 (06:00→18:00)
[2019-10-01] MEDS: BUDESONIDE (INHALATION) 0.5 MG/2 ML NEB NEB SCH ×2 (06:14→18:39)
[2019-10-01] MEDS ORDERED: SODIUM CHL 0.9% 1000 ML BAG XX ONE (07:00)
[2019-10-01 08:40] LABS: Basophils # (auto) 0.1 10 ^3/uL (0-0.2); Eosinophils # (auto) 0.3 10 ^3/uL (0-0.8); Eosinophils % (auto) 4.3 % (0.0-7.0); Lymphocytes # (auto) 0.3 10 ^3/uL (0.4-5.4); Lymphocytes % (auto) 4.6 % (10.0-50.0); Mean Corpuscular Hgb Conc. 33.3 g/dL (32.0-36.0); Mean Corpuscular Volume 93.2 fL (80.0-100.0); Monocytes # (auto) 0.3 10 ^3/uL (0-1.3); Monocytes % (auto) 4.8 % (0.0-12.0); Neutrophils # (auto) 6.2 10 ^3/uL (1.6-8.6); Neutrophils % (auto) 85.3 % (37.0-80.0); Platelet Count (auto) 84 10^3/uL (140-450); Red Blood Cells 3.22 10^6/uL (4.5-5.90); Red Cell Distribution Width 13.4 % (11.8-14.3); White Blood Cell 7.3 10^3/uL (4.4-10.8)
[2019-10-01 09:01] LABS: % Iron Saturation 68.7 % (20-55)
--- NOTE | 2019-10-01 11:46 | NUR ---
Pt opens eyes spotaneously off and on does not blink to threat Pupils back to 4 but briskly reactive .Pt keeps on drpping temperature with slighest exposure neuro made aware . Remains quite edematous for Dialysis today Jesus catheter inserted yesterday 09/29 Addendum: 10/01/19 at 1205 by DIAZ DE LEON RN RN Dialysis started Addendum: 10/01/19 at 1503 by DIAZ DE LEON RN RN Dialysis completed said to have removed 3 liters out Upper extremities became soft right after dialysis pt a bit awake and later lethargic post dialysis Gave all meds
[2019-10-01] MEDS: PANTOPRAZOLE 40 MG/10 ML VIAL INJ IV SCH ×2 (14:13→22:00)
[2019-10-01] MEDS: FUROSEMIDE 20 MG/2 ML VIAL IV SCH (14:13)
[2019-10-01] MEDS: MEROPENEM 1GM IVPB 100 ML IV SCH (14:13)
[2019-10-01] MEDS: CARVEDILOL 12.5 MG TAB PO SCH ×2 (14:16→15:16)
[2019-10-01] MEDS: amLODIPine BESYLATE 5 MG TAB PO SCH (14:17)
[2019-10-01] MEDS: ENOXAPARIN SOD 30 MG/0.3 ML SYRINGE SC SCH (14:18)
--- NOTE | 2019-10-01 18:42 | NUR ---
RT NOTE PT WAS SEEN BY RT FOR HHN TX. PT TOLERATES WELL VIA MASK. NO ADVERSE REACTION NOTED. CONT ORDERED Addendum: 10/01/19 at 1842 by Gay Gross RT Amended: Links added.
[2019-10-01] MEDS ORDERED: EPOETIN ALFA 10,000 UNIT/1 ML VIAL SC ONE (21:00)
[2019-10-01] MEDS ORDERED: MEROPENEM 500MG IVPB 50 ML IV SCH (22:00)
--- NOTE | 2019-10-01 22:16 | NUR ---
PT EXTUBATED THE DAY BEFORE, TOLERATING WELL 6L NC, VS STABLE, REMAINS UNESPONSIVE, TO BE TRANSFERED OUT OF ICU, BED AVAILABLE NOW IN CENTRAL TELEMETRY. REPORT GIVEN TO MARK REAGAN. PREPARING TO TRANSFER PATIENT VIA BED ON PORTABLE O2 AND TELE MONITOR.
--- NOTE | 2019-10-01 22:35 | NUR ---
RT NOTE PT WAS SEEN BY RT FOR [facility]N TX PRIOR TO TRANSPORT TO FLOORS. PT TOLERATES WELL VIA MASK. NO ADVERSE REACTION NOTED. CONT ORDERED Addendum: 10/01/19 at 2237 by Gay Gross RT Amended: Links added.
--- NOTE | 2019-10-01 22:53 | NUR ---
PT PLACED OM PUMPING STATION ENGINEER, BEING TRANSFERRED TO [facility] VIA BED ACCOMPANIED BY DIRECTOR PART AND AUXILIARY PERSONNEL.NO BELONGINGS AT THE BEDSIDE EXCEPT PT'S GLASSES WHICH PT. WEARS AND ITS CASE.
--- NOTE | 2019-10-01 23:00 | NUR ---
Telemetry transfer from ICU BRENDA YUNG admitted to Telemetry unit after SBAR received. Patient report received from Keyana FLORES, to MST unit, room 220, bed A, and unit policies regarding patient care and visiting hours. Patient now on continuous telemetry monitoring, tele box #[id number] and telemetry reading on arrival to unit is [facility] 102. Patient placed on bedside oxygen, weighed by bedscale and VS taken. Patient is aphasic, nonresponsive, has a rectal tube, car catheter, and NG tube with feeding. Will continue to monitor.
[2019-10-02] MEDS: ACCU-CHEK COMFORT CURVE STRIP VI SCH ×5 (00:32→23:35)
[2019-10-02] MEDS: InsuLIN REG 1unit/0.01ml Soln (100units/ml) SC SCH ×5 (00:36→23:34)
[2019-10-02 05:00] VITALS: BP 157/75
[2019-10-02] MEDS: hydrALAZINE HCL 20 MG/ML VL IV SCH ×5 (05:10→23:20)
[2019-10-02] MEDS: SODIUM CHLOR 0.9% PF (SALINE LOCK) 10ML VIAL/SYR IV SCH ×3 (05:32→22:11)
[2019-10-02] MEDS: ALBUTEROL SULF 2.5 MG/0.5ML(0.5%) NEB SOLN NEB SCH ×4 (06:34→23:46)
[2019-10-02] MEDS: BUDESONIDE (INHALATION) 0.5 MG/2 ML NEB NEB SCH ×2 (06:35→18:07)
[2019-10-02] MEDS: IPRATROPIUM BROM 0.5 MG/2.5ML INH SOL NEB SCH ×4 (06:35→23:46)
[2019-10-02] MEDS ORDERED: SODIUM CHL 0.9% 1000 ML BAG XX ONE (07:00)
[2019-10-02 07:37] LABS: BUN/Creatinine Ratio 19.2; Calcium 7.7 mg/dL (8.5-10.1); Potassium 4.5 mmol/L (3.5-5.1)
--- NOTE | 2019-10-02 08:00 | NUR ---
HOSPITAL LIST PAGED FOR CRITICAL VALUE OF BUN 98 DOWN FROM BUN 104 YESTERDAY
[2019-10-02 09:19] VITALS: BP 166/80
[2019-10-02] MEDS: FUROSEMIDE 20 MG/2 ML VIAL IV SCH (09:22)
[2019-10-02] MEDS: PANTOPRAZOLE 40 MG/10 ML VIAL INJ IV SCH (09:23)
[2019-10-02] MEDS: CARVEDILOL 12.5 MG TAB PO SCH ×3 (09:23→21:57)
[2019-10-02] MEDS: amLODIPine BESYLATE 5 MG TAB PO SCH ×3 (09:24→16:37)
--- NOTE | 2019-10-02 12:00 | NUR ---
Respiratory note: PT SEEN FOR NTS, SUCTIONED LARGE AMOUNT OF THICK WHITE RETURN. COUGH NOTED WHEN SUCTIONED.
--- NOTE | 2019-10-02 12:26 | NUR ---
WOUND CARE NOTE: Wound care in to see patient for reevaluation of multiple wounds. Patient has been extubated and now in central MS/telemetry unit. Patient is resting in bed in Rm. 220A. Patient is awake but non-verbal. Patient appears to be in no pain using [employer] Womack Faces Pain Scale. He's max assist in ADL's and his Nicholas score is 14. Skin assessment done with the help of nurse certified pathology assistant, Tash. Patient is display generalized edema. His Lt arm multiple skin tears from open blisters are now dry and resolving.Skin tears to Rt upper arm has saturated dressing. Wounds are red with pink frances wound,moderate serous drainage noted,no odor noted. Patient's bilateral lower leg continue to display dry hyperkeratotic skin. He's receiving BID/PRN cleaning and application of Hydraguard cream to BLE to help moisten dry skin. Distal penile/scrotal mucosal ulcer now is dry and closed with scab, left open to air. Patient's medial sacrum continue to display an open, evolving DTI measuring 5x4cm, bright red at center, dark red frances wound, minimal serosanguineous drainage,no odor noted. Patient has rectal tube n placed with dark liquid stools in tubing in in bag. Lower buttocks, inner thigh continue to display bright erythremic moisture associated dermatitis. Cleansed sacral wound, frances care given. Applied Thera honey gauze over open DTI and covered with Opti foam sacral dressing. Applied Z Guard cream to lower buttocks and perineum. Patient's Rt lateral ear lobe noted with 0.5x0.5cm scabbed abrasion with pink surrounding skin; area is clean and dry,left open to air. New photograph of wounds are taken for reference. Repositioned patient for comfort facing his Lt side, redistributed pressure points with pillows, elevated BLE on pillows. Patient tolerated well. Bed in low position with all safety precautions in placed. RECOMMENDATION: Daily/PRN dressing change to evolving DTI with Thera honey application per MD order, continuation of all other wound care orders prescribed by MD, air mattress (ordered), continue with skin/wound plan of care, continue monitoring by wound care while patient is hospitalized. Addendum: 10/02/19 at 1738 by Stefanie Briceño RN Amended: Links added.
[2019-10-02 12:36] LABS: Hepatitis A Ab IgM Negative
[2019-10-02 12:37] LABS: Hepatitis B Core IgM Negative; Hepatitis B Surface Antigen Negative (Negative); Hepatitis C Antibody Negative (Negative)
--- NOTE | 2019-10-02 12:46 | NUR ---
Nutrition Followup Note Wt: 130.6 kg (pt with + 4 edema) Pt sleeping with TF running. Per MD note pt to receive dialysis today. Consider changing TF to Nepro CS 1.8 kcal at 45 ml/hr and 1 packet prostat TID if pt is on regularly scheduled HD. Est energy needs 9462-4481 kcal (20-25 kcal/kg IBW 81kg) , Est protein needs 79-99g (0.6-0.75g/kg 132.3kg, r/t elevated RFT possible CKD no HD). Will reassess per dry body wt Consider increasing protein needs to 132-158g 1-1.2g/kg BW 132.3kg if pt is on continued HD Labs: BUN 98H, Creat 5.10H, GLUC 136H, Alb 1.7L, Ca 7.7L BM: Pt with 400 ml stool 10/01 per RN note Skin: BS 14 mod risk, full details in healthcare consulting manager note PES: Altered nutrition related lab values r/t current/chronic medical condition aeb elev RFTs, severe hypoalbuminemia Comments: Will continue to monitor NPO status, EN tolerance, skin status, pertinent labs and weight trends. Will f/u in 2-3 days. Rec: 1) Continue to monitor NPO status, labs, skin 2) Refer pt to OPD on DC 3) Continue current plan of care. 4) Consider TF of Nepro CS at a goal rate of 45 ml/hr and 1 packet prostat TID per Md approval 5) Consider adding Nephrovite and Vitamin C 500mg BID for wound healing
[2019-10-02 13:05] VITALS: BP 157/62
--- NOTE | 2019-10-02 13:59 | NUR ---
AIR MATTRESS: Air mattress ordered at [facility]. ETA 10/02/19 @ 1956 Reference #[id number]. Please call [facility] at if needed to follow up.
[2019-10-02] MEDS ORDERED: DOBUTamine 1000MCG/ML 250 ML IV SCH (15:00)
[2019-10-02] MEDS ORDERED: CATHFLO ACTIVASE (ALTEPLASE) 2 MG VIAL IV ONE (16:30)
[2019-10-02] MEDS: cloNIDine HCL 0.1 MG TAB NG PRN (16:39)
[2019-10-02 17:13] VITALS: BP 213/92
--- NOTE | 2019-10-02 18:50 | NUR ---
Respiratory note: PT NTS'D FOR MODERATE THICK, YELLOW/BLOOD TINGED SECRETIONS. WEAK COUGH NOTED. PT'S SPO2 INCREASED TO 91% ON 10L SIMPLE MASK. RN AWARE, WILL CONTINUE TO MONITOR PT.
--- NOTE | 2019-10-02 19:05 | NUR ---
OPENING SHIFT NOTE RECEIVED REPORT FROM DAY SHIFT RN. ASSUMED CARE OF PATIENT. BED LOCKED IN LOWEST IN LOWEST POSITION, SIDE RAILS UP X 3, HOB ELEVATED AT LEAST 30 DEGREES, CALL LIGHT IS WITHIN REACH. PATIENT EXHIBITING NO SIGNS OR SYMPTOMS OF RESPIRATORY DISTRESS AT THIS TIME. PATIENT EXHIBITING NO SIGNS OF PAIN AT THIS TIME. WILL CONTINUE TO MONITOR.
[2019-10-02 22:00] VITALS: BP 166/94
--- NOTE | 2019-10-02 23:56 | NUR ---
Respiratory note: PAGED TO BEDSIDE BY RN FOR SPO2 AT 85%. PT ON A 10L SIMPLE MASK. MED NEB TX GIVEN, PT PLACED ON 12L NRB, SPO2 IMPROVED TO 93%. PT NTS'D FOR A SMALL AMOUNT OF JENSEN BLOOD.
[2019-10-03] MEDS: hydrALAZINE HCL 20 MG/ML VL IV SCH ×4 (04:17→23:22)
[2019-10-03 05:00] VITALS: BP 177/81
[2019-10-03] MEDS: ACCU-CHEK COMFORT CURVE STRIP VI SCH ×3 (05:21→18:25)
[2019-10-03] MEDS: InsuLIN REG 1unit/0.01ml Soln (100units/ml) SC SCH ×3 (05:23→18:00)
[2019-10-03] MEDS: SODIUM CHLOR 0.9% PF (SALINE LOCK) 10ML VIAL/SYR IV SCH ×3 (05:27→23:18)
[2019-10-03] MEDS: ALBUTEROL SULF 2.5 MG/0.5ML(0.5%) NEB SOLN NEB SCH ×3 (06:04→18:05)
[2019-10-03] MEDS: BUDESONIDE (INHALATION) 0.5 MG/2 ML NEB NEB SCH ×2 (06:05→18:05)
[2019-10-03] MEDS: IPRATROPIUM BROM 0.5 MG/2.5ML INH SOL NEB SCH ×3 (06:05→18:05)
[2019-10-03] MEDS: cloNIDine HCL 0.1 MG TAB NG PRN (06:13)
--- NOTE | 2019-10-03 06:20 | NUR ---
RECEIVED PT ON 15 LITERS NONREBREATHER, SPO2 93%. PT IS GURGLING, I SUCTIONED BACK OF PT THROAT WITH 12 SERBIAN STERILE SUCTION CATHETER, SUBSEQUENTLY RECEIVED COPIOUS THIN JENSEN BLOODY SECRETIONS FROM PTS THROAT. GURGLING SUBSIDED AFTER SUCTION. HHN TX ADMINISTERED WITH NO ADVERSE REACTIONS TO MEDICATION. PT PLACED BACK ON 15 LITERS NONREBREATHER MASK. SPO2 94%. MARK SMITH AT BEDSIDE.
[2019-10-03 06:24] LABS: % Iron Saturation 49.2 % (20-55)
[2019-10-03 06:27] LABS: Basophils # (auto) 0.1 10 ^3/uL (0-0.2); Basophils % (auto) 0.8 % (0.0-2.0); Eosinophils # (auto) 0.2 10 ^3/uL (0-0.8); Eosinophils % (auto) 2.2 % (0.0-7.0); Hemoglobin 10.2 g/dL (13.5-17.5); Monocytes # (auto) 0.5 10 ^3/uL (0-1.3)
[2019-10-03 06:29] LABS: Hematocrit 30.8 % (41.0-53.0); Lymphocytes # (auto) 0.5 10 ^3/uL (0.4-5.4); Lymphocytes % (auto) 4.2 % (10.0-50.0); Mean Corpuscular Hgb Conc. 33.2 g/dL (32.0-36.0); Mean Corpuscular Volume 93.2 fL (80.0-100.0); Monocytes % (auto) 4.9 % (0.0-12.0); Neutrophils # (auto) 9.6 10 ^3/uL (1.6-8.6); Neutrophils % (auto) 87.9 % (37.0-80.0); Nucleated Red Blood Cells % 0.1 %; Platelet Count (auto) 43 10^3/uL (140-450); Red Cell Distribution Width 13.2 % (11.8-14.3); White Blood Cell 10.9 10^3/uL (4.4-10.8)
[2019-10-03 06:34] LABS: Calcium 7.9 mg/dL (8.5-10.1); Potassium 4.4 mmol/L (3.5-5.1)
[2019-10-03 06:36] LABS: BUN/Creatinine Ratio 18.4
--- NOTE | 2019-10-03 06:41 | NUR ---
Hospitalist Called/paged Hospitalist called. Waiting for call back. Continue care.
[2019-10-03] MEDS ORDERED: SODIUM CHL 0.9% 1000 ML BAG XX ONE (07:00)
--- NOTE | 2019-10-03 07:00 | NUR ---
Hospitalist returned call Hospitalist Leon Chauhan returned call, updated on patient status and reason for call, orders received and verified. Continue care.
--- NOTE | 2019-10-03 07:00 | NUR ---
Critical lab received Critical lab of BUN 86. Decreased from previous value. Patient is currently receiving dialysis. Day shift nurse informed of value.
--- NOTE | 2019-10-03 07:11 | NUR ---
CLOSING SHIFT NOTE Endorsed care to day shift RN
[2019-10-03] MEDS ORDERED: HYDROcodone-ACET 5/325MG TAB PO ONE (07:15)
[2019-10-03 09:00] VITALS: BP 223/100
[2019-10-03] MEDS: FUROSEMIDE 20 MG/2 ML VIAL IV SCH (10:43)
[2019-10-03] MEDS: CARVEDILOL 12.5 MG TAB PO SCH ×2 (10:44→23:19)
[2019-10-03] MEDS: amLODIPine BESYLATE 5 MG TAB PO SCH (10:45)
[2019-10-03] MEDS ORDERED: MORPHINE SULF INJ 2 MG/ML SYRINGE 1ML IV PRN (11:30)
[2019-10-03 13:00] VITALS: BP 121/68
--- NOTE | 2019-10-03 15:30 | NUR ---
DISCUSSED PLAN OF CARE WITH DR CROSS AT BEDSIDE. PT COMFORT MEASURES. PT CURRENTLY ON NRB AT [facility], WAITING FOR FAMILY TO VISIT
[2019-10-03 17:00] VITALS: BP 137/76
--- NOTE | 2019-10-03 19:35 | NUR ---
Opening Shift Note Assumed care of patient, unresponsive, no facial grimace for pain. Patient on non-rebreather mask at 15 LPM, oxygen saturation at 99%. Patient has a rectal tube and car catheter, on an air mattress. NGT in place, positive placement verified with auscultation. Will continue to monitor for changes Q1hr and PRN.
[2019-10-03] MEDS ORDERED: EPOETIN ALFA 10,000 UNIT/1 ML VIAL SC ONE (21:00)
[2019-10-03 22:00] VITALS: BP 128/71
[2019-10-04] MEDS: IPRATROPIUM BROM 0.5 MG/2.5ML INH SOL NEB SCH ×4 (00:21→18:20)
[2019-10-04] MEDS: ALBUTEROL SULF 2.5 MG/0.5ML(0.5%) NEB SOLN NEB SCH ×4 (00:21→18:20)
[2019-10-04] MEDS: ACCU-CHEK COMFORT CURVE STRIP VI SCH ×4 (00:36→18:00)
[2019-10-04 05:00] VITALS: BP 132/70
[2019-10-04] MEDS: hydrALAZINE HCL 20 MG/ML VL IV SCH ×4 (05:00→23:36)
[2019-10-04] MEDS: InsuLIN REG 1unit/0.01ml Soln (100units/ml) SC SCH ×4 (06:00→18:00)
[2019-10-04] MEDS: BUDESONIDE (INHALATION) 0.5 MG/2 ML NEB NEB SCH ×2 (06:33→18:20)
[2019-10-04] MEDS: SODIUM CHLOR 0.9% PF (SALINE LOCK) 10ML VIAL/SYR IV SCH ×3 (06:36→22:21)
--- NOTE | 2019-10-04 07:30 | NUR ---
Opening Shift Note Assumed care of patient. Patient not responding to verbal or painful stimuli. Noted spontaneous eye opening. On NRB at 15 LPM with O2 saturations at 98%. No S/S of distress/SOB or pain. Mcgill catheter is below bladder and draining to gravity. Rectal tube in place. NGT to R nare is currently clamped. Jevity to be ran at 30 ml/hr per MD orders. On specialty air mattress and BLE are elevated. Instructed on POC and to call for assist PRN, will continue to monitor for changes Q1hr and PRN.
--- NOTE | 2019-10-04 07:30 | NUR ---
No significant change on the patient's status. Report given to oncoming RN.
[2019-10-04 09:00] VITALS: BP 111/67
[2019-10-04] MEDS: CARVEDILOL 12.5 MG TAB PO SCH ×2 (10:00→22:21)
[2019-10-04] MEDS: amLODIPine BESYLATE 5 MG TAB PO SCH (10:36)
[2019-10-04] MEDS: FUROSEMIDE 20 MG/2 ML VIAL IV SCH (10:37)
--- NOTE | 2019-10-04 12:42 | NUR ---
Nutrition Followup Note Wt: 118.0 kg (pt with + 3 generalized edema), pt wt decreased significantly since HD started Pt was with care team with little drawn at time of rounds. Per MD note pt to receive next dialysis 10/05. Pt to receive Jevity 1.2 at 30 ml/hr per RN. Consider changing TF to Nepro CS 1.8 kcal at 45 ml/hr and 1 packet prostat TID if pt is on regularly scheduled HD. Est energy needs 2435-6709 kcal (20-25 kcal/kg IBW 81kg) , Est protein needs 79-99g (0.6-0.75g/kg 132.3kg, r/t elevated RFT possible CKD no HD). Will reassess per dry body wt Consider increasing protein needs to 132-158g 1-1.2g/kg BW 132.3kg if pt is on continued HD Labs: BUN 86H, Creat 4.68H, Alb 1.2L, CA 7.9L BM: Pt with 400 ml stool 10/01 per RN note Skin: BS 9 high risk, full details in healthcare receptionist note PES: Altered nutrition related lab values r/t current/chronic medical condition aeb elev RFTs, severe hypoalbuminemia Comments: Will continue to monitor NPO status, EN tolerance, skin status, pertinent labs and weight trends. Will f/u in 2-3 days. Rec: 1) Continue to monitor NPO status, labs, skin 2) Refer pt to [facility] on DC 3) Continue current plan of care. 4) Consider TF of Nepro CS at a goal rate of 45 ml/hr and 1 packet prostat TID per Md approval 5) Consider adding Nephrovite and Vitamin C 500mg BID for wound healing
[2019-10-04 13:00] VITALS: BP 109/61
--- NOTE | 2019-10-04 13:00 | NUR ---
NTS. PT. FOR LARGE AMOUNT OF THICK DARK BLOODY SECRETIONS. FOUND PT. ON 15LPM NRB ,SPO2 98%. DECREASED TO 12LPM NRB SP02 97%. PT. IS NON VERBAL. BS. ARE STILL COARSE BILATERALLY EVEN AFTER SUCTIONING.
--- NOTE | 2019-10-04 13:00 | NUR ---
Dr. Khalil at bedside Discussing POC with this nurse and charge nurse Milla. Patient has DNR with comfort measures only. Per MD, okay to stop tube feedings. Jevity stopped and NGT clamped. Per MD, will proceed with current orders and POC will be reassessed on Sunday.
[2019-10-04 17:00] VITALS: BP 124/53
[2019-10-04 17:24] VITALS: BP 124/53
--- NOTE | 2019-10-04 18:24 | NUR ---
RT NOTE PT WAS SEEN BY RT FOR HHN TX. PT TOLERATES WELL VIA MASK. NO ADVERSE REACTION NOTED. PT TOLERATES MANUAL CPT ANTERIORLY WELL.. PT WAS NTS AND ORALLY SUCTIONED FOR BROWN/RED RETURN. CONT ORDERED Addendum: 10/04/19 at 1834 by Gay Gross RT Amended: Links added.
[2019-10-04 22:00] VITALS: BP 134/65
[2019-10-05] MEDS: ALBUTEROL SULF 2.5 MG/0.5ML(0.5%) NEB SOLN NEB SCH ×3 (00:20→12:00)
[2019-10-05] MEDS: IPRATROPIUM BROM 0.5 MG/2.5ML INH SOL NEB SCH ×3 (00:20→12:00)
--- NOTE | 2019-10-05 00:24 | NUR ---
RT NOTE PT WAS SEEN BY RT FOR HHN TX. PT TOLERATES WELL VIA MASK. NO ADVERSE REACTION NOTED. PT WAS ORALLY SUCTIONED FOR SMALL RETURN. PT WAS ON 12L NRB WITH SATS AT 87%. POST TX SATS WERE 77% ON 10L AEROSOL MASK. NRB INCREASED TO 15L/FLUSH AND SATS ARE 90% WHEN RT LEAVES THE ROOM. CONT ORDERED Addendum: 10/05/19 at 0115 by Gay Gross RT Amended: Links added.
[2019-10-05] MEDS: ACCU-CHEK COMFORT CURVE STRIP VI SCH ×3 (00:47→11:53)
[2019-10-05] MEDS: InsuLIN REG 1unit/0.01ml Soln (100units/ml) SC SCH ×3 (00:48→11:53)
[2019-10-05 05:00] VITALS: BP 133/59
[2019-10-05] MEDS: hydrALAZINE HCL 20 MG/ML VL IV SCH ×2 (05:00→10:08)
[2019-10-05] MEDS: SODIUM CHLOR 0.9% PF (SALINE LOCK) 10ML VIAL/SYR IV SCH ×2 (06:05→14:22)
--- NOTE | 2019-10-05 07:15 | NUR ---
Opening Shift Note Assumed care of patient. Patient not responding to verbal stimuli. Noted facial grimacing when repositioning patient with spontaneous eye opening; no tracking. On NRB at 15 LPM. No S/S of distress/SOB or pain. Mcgill catheter is below bladder and draining to gravity. Rectal tube in place. NGT to R nare is currently clamped. On specialty air mattress and BLE are elevated. Instructed on POC and to call for assist PRN, will continue to monitor for changes Q1hr and PRN.
[2019-10-05 07:21] LABS: Hemoglobin 8.3 g/dL (13.5-17.5); Monocytes # (auto) 0.5 10 ^3/uL (0-1.3)
[2019-10-05 07:23] LABS: Basophils # (auto) 0.1 10 ^3/uL (0-0.2); Basophils % (auto) 0.9 % (0.0-2.0); Eosinophils # (auto) 0.1 10 ^3/uL (0-0.8); Eosinophils % (auto) 1.6 % (0.0-7.0); Lymphocytes # (auto) 0.3 10 ^3/uL (0.4-5.4); Lymphocytes % (auto) 3.8 % (10.0-50.0); Mean Corpuscular Hemoglobin 30.9 pg (28.0-32.0); Mean Corpuscular Volume 93.5 fL (80.0-100.0); Monocytes % (auto) 6.1 % (0.0-12.0); Neutrophils # (auto) 7.5 10 ^3/uL (1.6-8.6); Neutrophils % (auto) 87.6 % (37.0-80.0); Platelet Count (auto) 75 10^3/uL (140-450); Red Blood Cells 2.68 10^6/uL (4.5-5.90); Red Cell Distribution Width 13.1 % (11.8-14.3); White Blood Cell 8.6 10^3/uL (4.4-10.8)
[2019-10-05 07:43] LABS: Calcium 7.7 mg/dL (8.5-10.1); Potassium 4.5 mmol/L (3.5-5.1)
[2019-10-05 07:46] LABS: BUN/Creatinine Ratio 16.8
[2019-10-05 09:00] VITALS: BP 129/52
[2019-10-05] MEDS: CARVEDILOL 12.5 MG TAB PO SCH (10:00)
[2019-10-05] MEDS: FUROSEMIDE 20 MG/2 ML VIAL IV SCH (10:07)
[2019-10-05] MEDS: amLODIPine BESYLATE 5 MG TAB PO SCH (10:08)
[2019-10-05] MEDS ORDERED: hydrALAZINE HCL 20 MG/ML VL IV SCH (10:45)
[2019-10-05 13:00] VITALS: BP 142/76
--- NOTE | 2019-10-05 13:00 | NUR ---
Respiratory note: Q6 MEDNEB WASTED. PT WAS PLACED ON MEDNEB AND DESATURATED TO 78%. PLACED NRB 15 LPM ON PROPERLY AND NTS LARGE BLOODY SECRETIONS. PT SP02 93%.
[2019-10-05] MEDS: BUDESONIDE (INHALATION) 0.5 MG/2 ML NEB NEB SCH (16:11)
--- NOTE | 2019-10-05 16:41 | NUR ---
Wound care Wound care done following MD orders. Will continue to monitor.
[2019-10-05 17:00] VITALS: BP 140/67
--- NOTE | 2019-10-05 18:17 | NUR ---
Dr. Eid at bedside
--- NOTE | 2019-10-05 18:25 | NUR ---
Called [facility] Spoke to Shobha to inform her of patient expiring. Per Shobha patient may be released. [phone]
--- NOTE | 2019-10-05 18:33 | NUR ---
Called account collector Spoke with Delaney, informed her of patient . Provided call back information. Per Delaney, account collector will return phone call.
--- NOTE | 2019-10-05 18:49 | NUR ---
Spoke with compass operator Spoke with Ankit Mcdonough. Per Ankit, body is released and this nurse may proceed with hospital policy regarding patient expiration.
--- NOTE | 2019-10-05 21:59 | NUR ---
1944 - SPOKE TO PATIENT'S SISTER, EVANGELINA YUNG AND NOTIFIED HER OF PATIENT'S . PER EVANGELINA, THERE IS NO MORTUARY READY AT THIS TIME, CONSENT OBTAINED TO BRING PATIENT IN THE [place] AND INFORM EVANGELINA TO CALL THE HOSPITAL SIDE SEAM MACHINE OPERATOR WITH MORTUARY DETAILS SOON POSSIBLE. PER EVANGELINA, SEND BELONGINGS WITH BODY TO THE [facility]. 2012 - RISK MANAGEMENT SPECIALIST'S CASE NO. OBTAINED FROM [facility] #[id number] 2029 - HOUSE SUPER VISOR NOTIFIED OF PATIENT'S 2129 - POST MORTEM CARE DONE, ALL LINES REMOVED, IDENTIFICATION TAGS APPLIED. 2151 - ADMITTING NOTIFIED OF PT'S . 2054 - PATIENT'S BODY BROUGHT DOWN TO [facility] WITH BELONGINGS.
[2019-10-06] MEDS ORDERED: SODIUM CHL 0.9% 1000 ML BAG XX ONE (07:00)
[2019-10-06] MEDS ORDERED: amLODIPine BESYLATE 5 MG TAB PO SCH (10:00)
[2019-10-06] MEDS ORDERED: EPOETIN ALFA 10,000 UNIT/1 ML VIAL SC ONE (21:00)
== END 2019-10-05 22:00 | disposition expired | DRG 720 ==
LOC: EDBD 13:15 → ER 13:15 → TELE 13:16 → CATH ICU 09-20 11:10 → ICU WEST 09-27 22:24 → TELE-CENTR 10-01 22:58
PROVIDERS: ADMIT Internal Medicine; ATTEND Internal Medicine Pulmonary Disease
PROC: 5A1955Z Respiratory Ventilation, Greater than 96 Consecutive Hours (ICD-10-PCS; principal; 2019-09-16)
PROC: 0BH17EZ Insertion of Endotracheal Airway into Trachea, Via Natural or Artificial Opening (ICD-10-PCS; 2019-09-16)
PROC: 0W993ZZ Drainage of Right Pleural Cavity, Percutaneous Approach (ICD-10-PCS; 2019-09-22)
PROC: 0W993ZZ Drainage of Right Pleural Cavity, Percutaneous Approach (ICD-10-PCS; 2019-09-26)
PROC: 02HV33Z Insertion of Infusion Device into Superior Vena Cava, Percutaneous Approach (ICD-10-PCS; 2019-09-30)
DX: A41.9 Sepsis, unspecified organism (principal); J96.01 Acute respiratory failure with hypoxia; J18.9 Pneumonia, unspecified organism; I21.4 Non-ST elevation (NSTEMI) myocardial infarction; N17.0 Acute kidney failure with tubular necrosis; G93.41 Metabolic encephalopathy; I50.43 Acute on chronic combined systolic (congestive) and diastolic (congestive) heart failure; Z20.828 Contact with and (suspected) exposure to other viral communicable diseases; E11.649 Type 2 diabetes mellitus with hypoglycemia without coma; E87.5 Hyperkalemia; E66.01 Morbid (severe) obesity due to excess calories; E88.09 Other disorders of plasma-protein metabolism, not elsewhere classified; E11.65 Type 2 diabetes mellitus with hyperglycemia; D62 Acute posthemorrhagic anemia; D69.6 Thrombocytopenia, unspecified; L98.429 Non-pressure chronic ulcer of back with unspecified severity; I13.0 Hypertensive heart and chronic kidney disease with heart failure and stage 1 through stage 4 chronic kidney disease, or unspecified chronic kidney disease; I42.9 Cardiomyopathy, unspecified; E11.22 Type 2 diabetes mellitus with diabetic chronic kidney disease; Z51.5 Encounter for palliative care; R65.20 Severe sepsis without septic shock; N18.2 Chronic kidney disease, stage 2 (mild); Z80.0 Family history of malignant neoplasm of digestive organs; R80.9 Proteinuria, unspecified; Z79.4 Long term (current) use of insulin; Z99.11 Dependence on respirator [ventilator] status; Z80.42 Family history of malignant neoplasm of prostate; Z82.3 Family history of stroke; Z82.49 Family history of ischemic heart disease and other diseases of the circulatory system; Z66 Do not resuscitate; Z68.41 Body mass index [BMI] 40.0-44.9, adult; I16.0 Hypertensive urgency
CPT/HCPCS: 10022; 31500; 31720; 36415; 36556; 36600; 51702; 70450; 71045; 76604; 76775; 76942; 80048; 80053; 80074; 80307; 81001; 82550; 82570; 82728; 82805; 82962; 83036; 83540; 83550; 83735; 83880; 83986; 84132; 84156; 84300; 84443; 84484; 85025; 85610; 87040; 87070; 87081; 87086; 87205; 87804; 87880; 89051; 93005; 93306; 94002; 94003; 94640; 94667; 94668; 95819; 96365; 96368; 96375; 99291; C9113; G0378; J0330; J0610; J0696; J0885; J1100; J1642; J1815; J2185; J2250; J2704; J3480; J3490; P9047